=== PATIENT | female | born 1950 | race Caucasian/White ===

== ENCOUNTER 2019-09-26 19:40 | Inpatient (IN) | payer MEDICARE ==
[~2019-09-26] VITALS: Ht 160 cm; Wt 104.3 kg
[~2019-09-26 19:40] MED LIST: HYDROCODONE-AP1 EAC6 PO; ONDANSETRON HCL4 M2 PO
[2019-09-26 19:41] VITALS: BP 190/102
[2019-09-26] MEDS ORDERED: ATENOLOL 100MG100 MG PO (19:50)
[2019-09-26] MEDS ORDERED: ASA81BEC PO (19:50)
[2019-09-26] MEDS ORDERED: LEVO-T100 MCG PO (19:51)
[2019-09-26] MEDS ORDERED: LIPITOR 40 MG T40 M1 PO (19:52)
[2019-09-26 20:12] LABS: ABSOLUTE BASOPHILS 0.1 thou/uL (0.0-0.2); ABSOLUTE EOSINOPHILS 0.1 thou/uL (0.0-0.7); ABSOLUTE MONOCYTES 0.7 thou/uL (0.0-1.2); ABSOLUTE NEUTROPHILS 13.8 thou/uL (1.6-8.1); BASOPHILS 0.7 %; EOSINOPHILS 0.8 %; HEMATOCRIT 29.5 % (37.0-47.0); HEMOGLOBIN 9.6 gm/dL (12.0-15.0); LYMPHOCYTES 11.7 %; MCHC 32.6 g/dL (28.0-37.0); MCV 82.6 fL (80.0-100.0); MONOCYTES 4.3 %; MPV 8.2 fl. (7.2-11.1); NUCLEATED RBCS 0 /100WBC; PLATELET COUNT* 296 thou/uL (150-400); POLYS 82.5 %; RBC 3.57 mil/uL (4.20-5.00); WBC 16.7 thou/uL (4.0-11.0)
[2019-09-26 20:16] LABS: INR 1.1; PROTIME 11.2 Seconds (9.20-11.50)
[2019-09-26 20:23] LABS: CALCIUM 6.9 mg/dL (8.5-10.1); POTASSIUM 4.2 mmol/L (3.5-5.1)
[2019-09-26 20:28] LABS: ALBUMIN 2.8 g/dL (3.4-5.0); TOTAL BILIRUBIN 0.4 mg/dL (<0.1-1.0); TOTAL PROTEIN 7.2 g/dL (6.4-8.2)
[2019-09-26 22:00] LABS: URINE BILIRUBIN NEGATIVE (Negative); URINE BLOOD 1+ (Negative); URINE CLARITY CLEAR; URINE COLOR YELLOW; URINE GLUCOSE-RANDOM TRACE (Negative); URINE KETONES NEGATIVE (Negative); URINE LEUKOCYTES-REFLEX NEGATIVE (Negative); URINE NITRITE-REFLEX POSITIVE (Negative); URINE PROTEIN 3+ (Negative); URINE SPECIFIC GRAVITY 1.025 (1.005-1.030); URINE UROBILINOGEN 0.2 E.U./dl (0.2-1.0)
[2019-09-26 22:10] LABS: CRYSTALS None Seen /LPF (None Seen); HYALINE CASTS 0-3 Few /LPF (None Seen); SQUAMOUS 0-3 Few /LPF (0-3); URINE RBC 0-2 Rare /HPF (0-2); URINE WBC-REFLEX 6-15 Few /HPF (0-5)
[2019-09-26 22:42] VITALS: BP 190/85
[2019-09-26 22:45] VITALS: BP 147/78
[2019-09-27 04:00] VITALS: BP 158/81
--- NOTE | 2019-09-27 06:46 | NUR ---
PT ADMITTED TO FLOOR AT 2230. ASSESSMENTS COMPLETED AT BEDSIDE. C/O PAIN TREATED WITH PRN MEDICATION. C/O N/V TREATED WITH PRN MEDICATION. HOURLY ROUNDING COMPLETED FOR SAFETY. CALL LIGHT WITHIN REACH, BED ALARM ON. PT HAS REMAINED NPO FROM 0000.
[2019-09-27 07:40] VITALS: BP 156/84
[2019-09-27 08:32] LABS: CALCIUM 6.5 mg/dL (8.5-10.1); CREATININE 1.8 mg/dL (0.6-1.3); POTASSIUM 4.1 mmol/L (3.5-5.1)
[2019-09-27 09:15] VITALS: BP 156/84
[2019-09-27 13:15] VITALS: BP 124/76
--- NOTE | 2019-09-27 17:07 | NUR ---
PT A&OX4 VSS. PT TO SURGERY THIS AM FOR HIP R HIP REPAIR. PT ON 2L O2 BY NC. IV TO RFA PATENT, NO SWELLING/REDNESS NOTED. PT WAS NPO SINCE MIDNIGHT PRIOR TO SURGERY. PT C/O NAUSEA THIS AM, PRN MEDICATIONS ADMINISTERED ORDERED. GARY CATHETER PATENT, YELLOW URINE OBSERVED IN COLLECTION BAG. 1 NEPH TUBE PRESENT UPON ADMISSION. DRAIN PATENT, DEVICE EMPTIED IN PACU PRIOR TO RETURNING TO UNIT. PT BELONGINGS SENT HOME WITH SPOUSE FROM ER PRIOR TO TRANSFERRING TO THIS UNIT LAST NOC. PT SPOUSE AT BEDSIDE THIS AM PER ANATOMY AND PHYSIOLOGY INSTRUCTOR TO PROVIDE MEDICATION LIST AND INFORMATION. PT RETURNED FROM PACU APPROX 1335. NO SIGNS/SYMPTOMS OF DISTRESS. NO C/O PAIN. INSULIN ADMINISTERED WITH PT EVENING MEAL. PT RESTS IN BED WITH CALL LIGHT IN REACH. WILL CONTINUE TO MONITOR.
[2019-09-27 18:53] VITALS: BP 114/73
[2019-09-27 20:00] VITALS: BP 142/73
[2019-09-28 00:23] VITALS: BP 102/55
[2019-09-28 04:41] LABS: CALCIUM 6.4 mg/dL (8.5-10.1); CREATININE 2.1 mg/dL (0.6-1.3); POTASSIUM 4.5 mmol/L (3.5-5.1)
--- NOTE | 2019-09-28 05:17 | NUR ---
ASSESSMENTS COMPLETED AT BEDSIDE, PLEASE SEE CHARTING. MEDIACTIONS ADMINISTERED PER MAR. PT HAS HAD IMPROVEMENT TO PAIN AFTER SURGERY AND HAS REQUIRED NO PAIN MEDICATION THIS SHIFT. DID EDUCATE PT ON PAIN WITH INCREASE WITH MOVEMENT. CURRENTLY IN BED WITH CALL LIGHT WITHIN REACH. HOURLY ROUNDING COMPLETED FOR SAFETY.
[2019-09-28 05:25] LABS: HEMATOCRIT 19.1 % (37.0-47.0); HEMOGLOBIN 6.3 gm/dL (12.0-15.0)
[2019-09-28 07:45] VITALS: BP 119/68
[2019-09-28 09:56] VITALS: BP 116/61; BP 118/62; BP 120/70; BP 125/71
[2019-09-28 14:02] LABS: HEMATOCRIT 20.7 % (37.0-47.0)
[2019-09-28 14:07] LABS: HEMOGLOBIN 6.9 gm/dL (12.0-15.0)
[2019-09-28 15:30] VITALS: BP 129/69; BP 130/71; BP 131/70; BP 133/72; BP 135/72
--- NOTE | 2019-09-28 18:45 | NUR ---
PT A&OX4 VSS. PT ACCUCHECK, SLIDING SCALE INSULIN ON AUG. PT ON 2L O2 BY NASAL CANNULA. PT HAS GARY R/T IMMOBILITY. NEPHROSTOMY DRAIN TO L FLANK PRESENT ON ADMISSION. PO PRN PAIN MED X1 THIS SHIFT. SX DRESSING TO R HIP C/D/I. CRITICAL HGB 6.3 , THIS AM. 1 UNIT BLOOD ORDERED PRIOR TO THIS NURSE ASSUMING CARE. 1ST UNIT INFUSED. H&H DRAWN, AND 2ND UNIT ORDERED BY DR FLORES. 2ND UNIT COMPLETED 1829, REPEAT H&H ORDERED, LAB NOTIFIED. PT RESTING IN BED WITH CALL LIGHT IN REACH. WILL CONTINUE TO MONITOR.
[2019-09-28 19:04] LABS: HEMATOCRIT 22.7 % (37.0-47.0); HEMOGLOBIN 7.7 gm/dL (12.0-15.0)
[2019-09-28 20:00] VITALS: BP 140/71
[2019-09-29] VITALS: BP 136/74
--- NOTE | 2019-09-29 04:33 | NUR ---
ASSUMED PT CARE AT APPROX 1930. PT IS AWAKE AND ORIENTED X4. ASSESSMENT DONE AND CHARTED. RIGHT HIP DRESSING INTACT CLEAN AND DRY. LIDOCAINE PATCH PLACED FOR PAIN WITH PARTIAL RELIEF. ICE PACK IN PLACE. PT IS ABLE TO SLEEP SOME. CALL LIGHT WITHIN REACH. HOURLY ROUNDING DONE FOR PT SAFETY. HIGH FALL PRECAUTIONS IN PLACE.
[2019-09-29 04:44] LABS: HEMATOCRIT 23.6 % (37.0-47.0)
[2019-09-29 08:00] VITALS: BP 167/91
--- NOTE | 2019-09-29 14:57 | NUR ---
CM spoke with Pt's via phone. Pt is independent, uses a cane for mobility. Per , Pt tripped over some torn souleymane at home. No hx of HH or SNF. CM informed that therapies are recommending acute rehab, consult placed. in agreement with POC. Per , if Pt needs assistance post dc from acute rehab, their son and grandson also live in the home. Following.
--- NOTE | 2019-09-29 15:35 | NUR ---
PT VSS, A&OX4, MED SURG STATUS, RIGHT HIP FX- ORIF, DRESSING CLEAN DRY AND INTACT, GARY CATHETER, NEPH TUBE REMOVED TODAY- DRESSING IN PLACE, YEASTY AREA ABOVE INSERTION SITE. NYSTATIN ON EMAR. PATIENT MAX ASSIST- PIVOT TO CHAIR WITH PT. HOURLY ROUNDING PERFORMED, POSSESSIONS AND CALL LIGHT WITHIN REACH.
[2019-09-29 16:00] VITALS: BP 139/76
--- NOTE | 2019-09-29 16:55 | EKG ---
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: NEHEMIAH : 1950 Requested By: Boris Sharma Order Number: [id number] Arun MD: Mark Card Measurements Intervals [place] Rate: 63 P: -5 NM: 200 QRS: -16 QRSD: 90 T: -89 QT: 517 QTc: 530 Interpretive Statements Sinus rhythm Possible inferior scar Borderline left axis deviation Nonspecific T abnormalities, diffuse leads Prolonged QT interval No previous ECG available for comparison Electronically Signed On 09-29-2019 16:53:31 CDT by Mark Card [email or web address] <ELECTRONICALLY SIGNED> By: Mark Card MD, FAC 09/29/19 1653 0741 0741 Mark Card MD, [facility] /EPI
[2019-09-29 20:30] VITALS: BP 144/74
--- NOTE | 2019-09-30 06:11 | NUR ---
PATIENT SLEPT MOST OF THE NIGHT. PATIENT WAS A LITTLE RESTLESS THIS SHIFT WANTING TO GET UP AND TAKING HER GOWN OFF. GARY REMAINS TO DEPENDENT DRAIN. IV ANTIBIOTIC WAS GIVEN ORDERED. WILL CONTINUE TO MONITOR.
[2019-09-30 06:22] LABS: HEMATOCRIT 22.4 % (37.0-47.0); HEMOGLOBIN 7.6 gm/dL (12.0-15.0); MCH 28.7 pg (26.0-34.0); MCHC 34.1 g/dL (28.0-37.0); MCV 84.2 fL (80.0-100.0); MPV 8.4 fl. (7.2-11.1); RBC 2.66 mil/uL (4.20-5.00); RDW-CV 14.6 % (10.5-14.5); WBC 10.4 thou/uL (4.0-11.0)
[2019-09-30 06:28] LABS: CALCIUM 7.1 mg/dL (8.5-10.1); CREATININE 2.1 mg/dL (0.6-1.3); MAGNESIUM 1.2 mg/dL (1.8-2.4)
[2019-09-30 08:00] VITALS: BP 180/81
--- NOTE | 2019-09-30 08:05 | CON ---
[address] [address] CONSULTATION Name: ABHINAV ABRAHAM Room: [address] IN M.R.#: [id number] Admission: 09/26/19 Attend Phys: Ofelia Anders Discharge: Date of : 52 Report #: [id number] THIS REPORT FOR: //name// cc: Justin Roman MD, Bruce D. MD ~ THIS REPORT FOR: //name// CC: Justin Sharma DATE OF SERVICE: 09/29/2019 INFECTIOUS DISEASE CONSULTATION ATTENDING PHYSICIAN: Balaji Ortiz MD REASON FOR EVALUATION: Complicated urinary tract infection in the setting of obstructive uropathy. HISTORY OF PRESENT ILLNESS: Chart reviewed, patient examined. This is a 69-year-old who has fairly extensive medical history including diabetes mellitus. She has got osteopenia, who fell and utilize a walker, had acute intertrochanteric right femoral fracture, it is comminuted, underwent operative internal fixation right intertrochanteric femur fracture with cephalomedullary nail fixation. Postop course has been fairly unremarkable. Of note, ongoing issues with appears to be obstructive uropathy. She does not know much of the details, it was done at another facility, but at one point she was admitted. She was reportedly diagnosed with urinary tract infection, underwent a left-sided nephrostomy tube. Again, she states she had roughly 9-day hospitalization treated with antibiotics and discharged for additional 7 days. She has been off the antibiotics for roughly a month. Denies any recent fevers. Her appetite has been somewhat diminished, overall. Denies any pulmonary related complaints. She made efforts to try to follow up and have the tube removed, it were unsuccessful during the coronavirus pandemic. There is pending imaging studies planned. She was placed empirically on cefepime and had been on ceftriaxone. Culture returned today came back a slit of Pseudomonas aeruginosa that was generally susceptible with exception of intermediate susceptibility to gentamicin. ALLERGIES: LISTED TO CODEINE. CURRENT MEDICATIONS: Include cefepime, tramadol, ondansetron, atorvastatin, levothyroxine, atenolol, promethazine. PAST MEDICAL HISTORY: As described above, diabetes mellitus type 2, history of hypertension, irritable bowel syndrome, [place] [address] CONSULTATION Name: ABRAHAMABHINAV Room: [address] IN [facility].#: [id number] Admission: 09/26/19 Attend Phys: Ofelia Anders Discharge: Date of : 52 Report #: [id number] SOCIAL HISTORY: Nonsmoker, no ethanol, no illicit drug use. FAMILY HISTORY: Noncontributory. REVIEW OF SYSTEMS: Otherwise, unremarkable 10-point review of systems with exception noted above. PHYSICAL EXAMINATION: GENERAL: She is alert, cooperative, appropriate, in mild distress. HEENT: Normocephalic. Extraocular muscles intact. She has got several teeth missing. NECK: Supple. LUNGS: Diminished breath sounds, generally clear. HEART: Regular. I do not appreciate murmur. ABDOMEN: Soft, nontender, nondistended. She had a left-sided nephrostomy tube. GENITOURINARY AND RECTAL: Deferred. LABORATORY AND X-RAY DATA: Urine culture with Pseudomonas aeruginosa described above. Electrolytes from yesterday: Sodium 135, potassium 4.5, chloride 103, bicarbonate is 20, anion gap of 12, BUN and creatinine 33 and 2.1, glucose of 181, estimated GFR of 23. TSH of 3.259. H and H 8.0 and 23.6. Initial hemoglobin 9.6, initial white count of 16.7, platelets of 296. LFTs unremarkable. Albumin of 2.8, total protein 7.2. ASSESSMENT: Complicated urinary tract infection as evidenced by nephrostomy tube has been in several weeks. Noted plans to image try to better identify the exact nature of the uropathy, which I believe is probably obstructive see if things have improved. Certainly agree with treatment with therapy with cefepime. Based on the culture results, it is adjusted for her renal insufficiency to see how she does clinically. Discuss with Dr. Ortiz. <ELECTRONICALLY SIGNED> By: Stu Gonzalez MD 09/30/19 0805 0948 [id number] Gonzalez MD /nt
--- NOTE | 2019-09-30 12:49 | NUR ---
Per , Pt will be medically stable to dc to acute rehab tomorrow, Dr Monroy to see and eval today. Insurance auth will need to be obtained.
[2019-09-30 16:51] VITALS: BP 162/83
--- NOTE | 2019-09-30 18:56 | NUR ---
PATINAVNEET RESTING IN BED. UP WITH MAX ASSIST X2 TO CHAIR. RIGHT FEMUR FX SURGICAL SITE WITH DRESSING CLEAN AND DRY. PAIN WELL MANAGED WITH TRAMADOL. KATHERIN MANRIQUE FOR PATINERT SAFETY
[2019-09-30 20:45] VITALS: BP 145/69
--- NOTE | 2019-10-01 05:16 | NUR ---
PT SLEPT WELL OVERNIGHT. GARY DRAINING YELLOW URINE. HS ACCUCHECK 143, NO INSULIN GIVEN. PT RECEIVED TRAMADOL AT HS WITH GOOD RESULT. ISLAND DRSG TO R HIP CDI. RWRIST IV SL, ABX GIVEN ORDERED. ABLE TO USE CALL LITE AND MAKE NEEDS KNOWN. PT TURNED AND REPOSITIONED Q2 HOURS AND PRN FOR SKIN CARE AND COMFORT. MED SURG STATUS.
[2019-10-01 06:26] LABS: HEMATOCRIT 23.4 % (37.0-47.0); HEMOGLOBIN 7.9 gm/dL (12.0-15.0)
[2019-10-01 06:36] LABS: CALCIUM 7.3 mg/dL (8.5-10.1); CREATININE 1.8 mg/dL (0.6-1.3); MAGNESIUM 1.1 mg/dL (1.8-2.4); POTASSIUM 4.1 mmol/L (3.5-5.1)
[2019-10-01 08:00] VITALS: BP 173/90
[2019-10-01 10:54] LABS: % SATURATION 14 % (20-39); IRON 19 ug/dL (50-175)
--- NOTE | 2019-10-01 15:44 | NUR ---
Insurance auth received for Pt to dc to acute rehab. Updated Dr and charge nurse. Cm attempted to contact Pt's , was unavailable via phone.
--- NOTE | 2019-10-01 16:15 | NUR ---
PT VSS, MED SURG STATUS, ROOM AIR, MAX ASSIST POST ORIF TO RIGHT HIP TO REPAIR FX, DRESSING CLEAN DRY AND INTACT. PT EXPERIENCED NAUSEA AND VOMITTING IN THE AM. ACCUCHECK, HOURLY ROUNDING PERFORMED, POSSESSIONS AND CALL LIGHT WITHIN REACH. REC DISCHARGE ORDERS, PT DISCHARGING TO 3RD FLOOR REHAB AT SHIFT CHANGE. DISCHARGE COMPLETED AND REVIEWED WITH PATIENT.
[2019-10-01] MEDS ORDERED: LIDOPATCH1 EACH TOP (18:32)
[2019-10-01] MEDS ORDERED: MAXIPIME1 GM IM (18:32)
[2019-10-01] MEDS ORDERED: MELATONIN5 M1 PO (18:32)
[2019-10-01] MEDS ORDERED: NYAMYC15 GM TOP (18:32)
[2019-10-01] MEDS ORDERED: ATENOLOL 100MG100 MG PO (18:32)
[2019-10-01] MEDS ORDERED: ELIQUIS5 MG PO (18:32)
[2019-10-01] MEDS ORDERED: SYNTHROID150 MCG PO (18:32)
[2019-10-01 18:45] VITALS: BP 173/90
[2019-10-01] MEDS ORDERED: VITAMIN D250 MCG PO (18:53)
[2019-10-01] MEDS ORDERED: FOSAMAX 70 MG T70 MG PO (18:53)
--- NOTE | 2019-10-07 09:05 | OP ---
[facility] [address] [place] [address] OPERATIVE REPORT Name: ABHINAV ABRAHAM Room: [address] [place] .R.#: [id number] Admission: 09/26/19 Attend Phys: Ofelia Anders Discharge: 10/01/19 Date of : 52 Report #: [id number] THIS REPORT FOR: //name// cc: Justin Roman MD, Bruce D. MD ~ THIS REPORT FOR: //name// CC: Justin Sharma DICTATED BY: Bakair Welch DO DATE OF SERVICE: 09/27/2019 PREOPERATIVE DIAGNOSIS: Right, closed, displaced and comminuted intertrochanteric hip fracture. POSTOPERATIVE DIAGNOSIS: Right, closed, displaced and comminuted intertrochanteric hip fracture, intertrochanteric femur fracture. PROCEDURE PERFORMED: Open reduction and internal fixation of right intertrochanteric femur fracture with cephalomedullary nail. ORTHOPEDIC IMPLANTS: Gwynn cephalomedullary nail 10 mm x 170 mm x 125 degree angles with appropriately sized lag screw and distal interlock screw. SURGEON: Raghu Coffey DO COMPUTER SYSTEMS ANALYST: Bakari Welch DO and tricia Marcano DO ANESTHESIA: General with local. ESTIMATED BLOOD LOSS: 175 mL. DRAINS: None. SPECIMENS: None. COMPLICATIONS: None. CONDITION OF THE PATIENT: Stable. DISPOSITION: PACU and then to Med/Surg. ANTIBIOTICS: Two g Ancef IV piggyback prior to the procedure as well as scheduled Roceph[place] [address] OPERATIVE REPORT Name: ABHINAV ABRAHAM Room: [address] IN [facility].#: [id number] Admission: 09/26/19 Attend Phys: Ofelia Anders Discharge: 10/01/19 Date of : 52 Report #: [id number] INDICATIONS FOR SURGERY: The patient is a pleasant 69-year-old female who resides at home with her and son and last night, she was ambulating with her walker when she fell landing on her right side, sustaining a right hip fracture. She presented to the Emergency Room where x-rays demonstrated a right intertrochanteric hip fracture and she was admitted to the hospital for further treatment. She was cleared by Medicine this morning for surgery today. She was informed of all the risks, benefits, indications and associated complications with operative fixation of her right hip fracture including but not limited to infection, wound healing complications, neurovascular injury, bleeding, need for blood transfusion, malunion, nonunion, posttraumatic arthritis, rotational abnormalities, shortening of the leg, need for revision surgery or hardware failure, complications with anesthesia, DVT, PE, even and other possibilities. She understands. Consent was obtained prior to surgery. FINDINGS: Right comminuted displaced intertrochanteric was evaluated. DESCRIPTION OF PROCEDURE: Met with the patient in the preoperative suite and the correct lower extremity was marked. She was then transferred to the operating room and given the benefit of general anesthesia. She was then transitioned into the [place] fracture table and positioned in the standard fashion. At this point, closed reduction was performed using the multiplanar fluoroscopy confirmed adequate reduction of the fracture. Therefore, the right lower extremity was then sterilely prepped and draped in the standard fashion. At this point, a surgical timeout was performed indicating correct patient, operative site, procedure performed and all in the room were in agreement, we elected to proceed. Next, I marked out the incision and the incision was incised just proximal to the greater trochanter extending proximally. Sharp dissection carried down to the fascia, which was incised in line with its fibers and then blunt dissection was carried down to the greater trochanter. Using multiplanar fluoroscopy, the guidewire position was identified and carried down to the lesser trochanter. The soft tissue protector and then opening reamer was then used over the guidewire. At this point, the [employer] gamma nail was then passed down the femur and we elected to proceed with a 10 x 170 x 125 degree angle nail. With the nail in position, the skin was incised for the lag screw position and a bone hook was utilized in order to hold the fracture reduced while the lag screw guidewire was positioned and then overreamed and then the appropriate size lag screw was then placed. In the attempt to position the lag screw in order to prevent any rotation of the femoral head, a second guidewire was placed and the tip was fractured and left within the intramedullary canal of the femur. Next, the triple sleeve was utilized for the distal interlock screw. The skin was incised and the distal interlock screw was drilled and then placed in the standard fashion. At this point, the wounds were thoroughly irrigated. Final multiplanar fluoroscopy images were taken. Closed the deep tissue and fascia with a #1 Vicryl in a [id number] fashion. Skin was closed with a 2-0 Monocryl in a simple inverted fashion. Skin maynor were then utilized. [address] [address] OPERATIVE REPORT Name: ABHINAV ABRAHAM Room: [address]#: [id number] Admission: 09/26/19 Attend Phys: Ofelia Anders Discharge: 10/01/19 Date of : 52 Report #: [id number] Dressings consisted of a Mepilex as well as a bulky compressive dressing with 4 x 4s, ABD and tape. Needle and sponge counts were correct x 2 at the end of procedure. ATTESTATION: Dr. Raghu Coffey was present for all critical aspects of the case. POSTOPERATIVE COURSE: The patient will receive physical therapy and a mechanical and chemical DVT prophylaxis will be initiated. Appreciate Medicine assistance in further medical co-management as well as a corrections caseworker for discharge planning. <ELECTRONICALLY SIGNED> By: Raghu Coffey DO 10/07/19 0905 1210 [id number] Coffey DO /nt
== END 2019-10-01 20:30 | DRG 853 ==
LOC: M.ERS 19:40 → M.2W 21:21 → M.TBA-ER 21:21 → M.2W 22:31
PROVIDERS: Emergency Medicine; Family Medicine; Internal Medicine; Orthopaedic Surgery; ADMIT Internal Medicine
PROC: 0QS604Z Reposition Right Upper Femur with Internal Fixation Device, Open Approach (ICD-10-PCS; principal; 2019-09-27)
PROC: 30233N1 Transfusion of Nonautologous Red Blood Cells into Peripheral Vein, Percutaneous Approach (ICD-10-PCS; 2019-09-28)
PROC: 0TP5X0Z Removal of Drainage Device from Kidney, External Approach (ICD-10-PCS; 2019-09-29)
DX: A41.9 Sepsis, unspecified organism (principal); E43 Unspecified severe protein-calorie malnutrition; M80.051A Age-related osteoporosis with current pathological fracture, right femur, initial encounter for fracture; N18.4 Chronic kidney disease, stage 4 (severe); N30.00 Acute cystitis without hematuria; D62 Acute posthemorrhagic anemia; N12 Tubulo-interstitial nephritis, not specified as acute or chronic; Z68.41 Body mass index [BMI] 40.0-44.9, adult; I12.9 Hypertensive chronic kidney disease with stage 1 through stage 4 chronic kidney disease, or unspecified chronic kidney disease; E11.22 Type 2 diabetes mellitus with diabetic chronic kidney disease; E78.5 Hyperlipidemia, unspecified; E66.01 Morbid (severe) obesity due to excess calories; I45.81 Long QT syndrome; R11.0 Nausea; T50.905A Adverse effect of unspecified drugs, medicaments and biological substances, initial encounter; B96.5 Pseudomonas (aeruginosa) (mallei) (pseudomallei) as the cause of diseases classified elsewhere; B96.20 Unspecified Escherichia coli [E. coli] as the cause of diseases classified elsewhere; Y92.89 Other specified places as the place of occurrence of the external cause; Z88.6 Allergy status to analgesic agent

== ENCOUNTER 2019-10-01 16:52 | Inpatient (IN) | payer MEDICARE ==
[~2019-10-01] VITALS: Ht 160 cm; Wt 110.1 kg
[~2019-10-01 16:52] MED LIST changes: +ASA81BEC PO; +ATENOLOL 100MG100 MG PO; +LEVO-T100 MCG PO; +LIPITOR 40 MG T40 M1 PO
[2019-10-01] MEDS ORDERED: NYAMYC15 GM TOP (18:32)
[2019-10-01] MEDS ORDERED: SYNTHROID150 MCG PO (18:32)
[2019-10-01] MEDS ORDERED: ATENOLOL 100MG100 MG PO (18:32)
[2019-10-01] MEDS ORDERED: ELIQUIS5 MG PO (18:32)
[2019-10-01] MEDS ORDERED: LIDOPATCH1 EACH TOP (18:32)
[2019-10-01] MEDS ORDERED: MAXIPIME1 GM IM (18:32)
[2019-10-01] MEDS ORDERED: MELATONIN5 M1 PO (18:32)
[2019-10-01] MEDS ORDERED: VITAMIN D250 MCG PO (18:53)
[2019-10-01] MEDS ORDERED: FOSAMAX 70 MG T70 MG PO (18:53)
[2019-10-01 20:24] VITALS: BP 197/80
[2019-10-01 21:30] VITALS: BP 179/71
--- NOTE | 2019-10-01 22:44 | NUR ---
PT ADMITTED TO REHAD @ 2029. ALERT AND ORIENTED X4. ADM HX AND ASSESSMENT DOCUMENTED. PT HAD CEFEPIME IVPB THAT WAS BROUGHT UP WITH PT AND PT HAS RW IV. CEFEPIME IVPB GIVEN. PT TO START CEFEPIME IM. PT HAVE HAD 2 EPISODES OF VOMITTING. ZOFRAN GIVEN FOR NAUSEA. MEDS GIVEN PER EMAR. WILL CONTINUE TO MONITOR.
[2019-10-02 04:00] VITALS: BP 179/71
[2019-10-02 05:14] LABS: HEMOGLOBIN 7.7 gm/dL (12.0-15.0); MCH 27.9 pg (26.0-34.0); MCHC 33.3 g/dL (28.0-37.0); MCV 83.7 fL (80.0-100.0); MPV 8.3 fl. (7.2-11.1); RBC 2.75 mil/uL (4.20-5.00); RDW-CV 14.7 % (10.5-14.5); WBC 8.2 thou/uL (4.0-11.0)
[2019-10-02 05:24] LABS: CREATININE 1.6 mg/dL (0.6-1.3); POTASSIUM 4.2 mmol/L (3.5-5.1)
[2019-10-02 05:31] LABS: CALCIUM 7.9 mg/dL (8.5-10.1)
--- NOTE | 2019-10-02 06:13 | NUR ---
PT SLEPT WELL THIS SHIFT. NO OTHER EPISODES OF N/V NOTED. PT DENIES PAIN. EXCORIATION TO LT KNEE. ADM PICTURE TAKEN. DRESSING TO LT HIP C/D/I. GARY IN PLACE. FALL PRECAUTION IN PLACE. WILL CONTINUE TO MONITOR.
[2019-10-02 08:00] VITALS: BP 154/74
--- NOTE | 2019-10-02 15:04 | NUR ---
Nutrition: Pt admitte dto rehab with Rt hip FX. Hx, meds, labs noted. BG 162, alb 2.8, prealb 18.3. Wt: 239#. Pt has upset stomach and isn't eating much - could be some constipation as well, per nursing. RD ordered Ensure at dinner tonight to help with po intake as well as possibility of helping with BM. Physciain indicated severe PCM - defer DX. CHO count diet. Will follow weekly. Consider Mild risk at this time. GOALS: +BM, increase meal intake, good BG control.
--- NOTE | 2019-10-02 15:38 | NUR ---
ASSUMMED CARE OF PT AT 0730, PT ALERT AND ORIENTED, PT TRANSFERS WITH MAX ASSIST OF 2, GB WALKER CUEING, DRESSING C/D/I TO RIGHT HIP, SKIN TO LE THICK/SCALY, MEPILEX TO LEFT KNEE INTACT, GARY PATENT AND DRAINING, SALINE LOCK PATENT TO RIGHT FA, DISCUSSED BOWEL STATUS WITH PHYSICIAN, PT C/O NAUSEA THIS AM, MEDICATED PER ORDER, C/O HIP PAIN, MEDICATED WITH GD RELIEF, TAKING FOOD AND FLUIDS WELL, PARTICIPATED IN ALL THERAPIES, HOURLY ROUNDING COMPLETED, ASSESSMENT COMPLETE, WILL CONTINUE TO MONITOR.
--- NOTE | 2019-10-02 16:31 | EKG ---
[place] [address] ELECTROCARDIOGRAM REPORT Name: ABRAHAMABHINAV Room: [address] ADM IN M.R.#: [id number] Admission: 10/01/19 Attend Phys: Lex Monroy MD Discharge: Date of : 52 Date of Service: 10/02/19 1530 Report #: [id number] THIS REPORT FOR: //name// [facility] Test Date: 2019-10-02 Test Time: 15:30:21 Pat Name: ABHINAV ABRAHAM Department: Room: [address] Gender: F Shell Assembler: : 1950 Requested By: Paula Fitzpatrick Order Number: [id number] Reading MD: Kleber Cotton Measurements Intervals [place] Rate: 59 P: 36 ND: 168 QRS: 6 QRSD: 93 T: 8 QT: 490 QTc: 486 Interpretive Statements Sinus rhythm Borderline abnrm T, anterolateral leads Borderline prolonged QT interval Compared to ECG 09/27/2019 07:41:38 T-wave abnormality no longer present Electronically Signed On 10-02-2019 16:30:10 CDT by Kleber Cotton [email or web address] <ELECTRONICALLY SIGNED> By: Kleber Cotton MD, FACC 10/02/19 1630 1530 1530 Kleber Cotton MD, FACC /EPI
[2019-10-02 19:50] VITALS: BP 145/57
[2019-10-03 04:41] LABS: HEMATOCRIT 20.4 % (37.0-47.0); MCH 29.1 pg (26.0-34.0); MCHC 34.4 g/dL (28.0-37.0); MCV 84.5 fL (80.0-100.0); RBC 2.42 mil/uL (4.20-5.00); RDW-CV 15.2 % (10.5-14.5); WBC 7.9 thou/uL (4.0-11.0)
[2019-10-03 05:04] LABS: ALBUMIN 1.8 g/dL (3.4-5.0); CALCIUM 7.6 mg/dL (8.5-10.1); CREATININE 1.6 mg/dL (0.6-1.3); MAGNESIUM 1.4 mg/dL (1.8-2.4); PHOSPHORUS* 2.7 mg/dL (2.5-4.9)
--- NOTE | 2019-10-03 06:27 | NUR ---
PT SLEPT WELL THIS SHIFT. MEDS GIVEN PER EMAR. PAIN MED GIVEN THIS SHIFT. GARY IN PLACE. NO BM NOTED THIS SHIFT. BOWEL REGIMEN STARTED. PT DECLINED NEPH TUBING DRESSING SITE ON LEFT FLANK TO BE CHANGED. PREFERS IT DONE LATER DURING THE DAY. MG+ BEING REPLACED PER PROTOCOL. PT HAD EPISODE OF VOMITTING THIS SHIFT. FALL PRECAUTION IN PLACE. CALL LIGHT WITHIN REACH. HOURLY ROUNDINGS MADE. WILL CONTINUE TO MONITOR.
[2019-10-03 08:02] VITALS: BP 148/70
--- NOTE | 2019-10-03 09:30 | EKG ---
[place] [address] ELECTROCARDIOGRAM REPORT Name: ABHINAV ABRAHAM Room: [address] ADM IN M.R.#: [id number] Admission: 10/01/19 Attend Phys: Lex Monroy MD Discharge: Date of : 52 Date of Service: 10/03/19 0454 Report #: [id number] THIS REPORT FOR: //name// [facility] Test Date: 2019-10-03 Test Time: 04:54:09 Pat Name: ABHINAV ABRAHAM Department: Room: [address] Gender: F Vascular Technologist: KAM : 1950 Requested By: Lex Monroy Order Number: [id number] Reading MD: Mark Card Measurements Intervals [place] Rate: 57 P: 20 LA: 171 QRS: -14 QRSD: 91 T: -7 QT: 479 QTc: 467 Interpretive Statements Sinus rhythm Borderline T abnormalities, diffuse leads Compared to ECG 10/02/2019 15:30:21 T-wave abnormality now present Electronically Signed On 10-03-2019 9:29:04 CDT by Mark Card [email or web address] <ELECTRONICALLY SIGNED> By: Mark Card MD, [facility] 10/03/19 0929 0454 0454 Mark Card MD, [facility] /EPI
--- NOTE | 2019-10-03 09:31 | EKG ---
[place] [address] ELECTROCARDIOGRAM REPORT Name: ABRAHAMABHINAV Room: [address] ADM IN M.R.#: [id number] Admission: 10/01/19 Attend Phys: Lex Monroy MD Discharge: Date of : 52 Date of Service: 10/03/19 0801 Report #: [id number] THIS REPORT FOR: //name// [facility] Test Date: 2019-10-03 Test Time: 08:01:26 Pat Name: ABHINAV ABRAHAM Department: Room: [address] Gender: F Classroom Aide: : 1950 Requested By: Paula Fitzpatrick Order Number: [id number] Reading MD: Mark Card Measurements Intervals [place] Rate: 55 P: 17 ME: 170 QRS: -14 QRSD: 93 T: -8 QT: 481 QTc: 461 Interpretive Statements Sinus rhythm Borderline T abnormalities, inferior leads Compared to ECG 10/02/2019 15:30:21 T-wave abnormality now present Electronically Signed On 10-03-2019 9:29:33 CDT by Mark Card [email or web address] <ELECTRONICALLY SIGNED> By: Mark Card MD, [facility] 10/03/19 0929 0 0 Mark Card MD, [facility] /EPI
--- NOTE | 2019-10-03 14:26 | NUR ---
RECEIVED REPORT FROM ARPAN CASTELLANO AT 1230. PATIENT IN CHAIR. ALARM ON. CALL LIGHT IN REACH.
--- NOTE | 2019-10-03 15:28 | NUR ---
REMOVED PATIENT GARY CATHETER. TIP INTACT. 9ML FLUID REMOVED FROM BALLOON BEFORE REMOVING. PATIENT IN BRIEF. PATIENT ON VOIDING TRIAL. IF PATIENT HAS NOT VOIDED BY 2100, WILL NEED BLADDER SCANNED.
--- NOTE | 2019-10-03 15:29 | NUR ---
Initial inpt rehab assessment: Pt lives at home with and family. Pt previously independent and used cane. No hx of HH services or SNF. SW to continue to follow to assist with safe dc planning.
--- NOTE | 2019-10-03 18:45 | NUR ---
PATIENT A&OX4. PATIENT UP TO BEDSIDE COMMODE X2 ASSIST AND GAIT BELT. PATIENT C/O PAIN, BUT REFUSED PAIN MEDICATION. REMOVED GARY CATHETER TODAY. PATIENT WILL NEED BLADDER SCANNED AT 2100 IF NO URINE OUTPUT AFTER GARY REMOVED AT 1500. PATIENT HAD SMALL WATERY BM TODAY.
[2019-10-03 19:40] VITALS: BP 197/90
[2019-10-03 21:45] VITALS: BP 154/70
--- NOTE | 2019-10-04 05:13 | NUR ---
ASSUMED CARES AT 1920. ALERT AND ORIENTED. PT HAVING INCREASED PAIN TO RIGHT HIP. PT HESITANT TO TAKE ANY PAIN MEDS BUT DID FINALLY AGREE. PT RESTLESS AND NEEDED MUCH REPOSITIONING TO GET COMFORTABLE. ICE PACK GIVEN. PT DID HAVE SEVERAL EPISODES OF URINARY INCONTINENCE. PVR X 1 WAS 50 CC. PT HAS REDNESS AND IS VERY EXCORIATED TO GROIN/PERIAREA. ZINC OINTMENT OBTAINED TO BE APPLIED. NYSTATIN POWDER TO ABD FOLD. MAGNESIUM REPLACED. DRSG TO RIGHT HIP WITH SEROUS DRAINAGE WAS CHANGED. FINALLY ABLE TO SLEEP AFTER 0300. CALL LIGHT IN REACH AND BED ALARM ON.
[2019-10-04 07:00] VITALS: BP 151/71
--- NOTE | 2019-10-04 18:28 | NUR ---
AM ASSESSMENT AND VITAL SIGNS COMPLETED DOCUMENTED. PT REQUIRES A LOT OF ENCOURAGEMENT TO DO MINIMAL ACTIVITY AND FREQUENTLY REFUSES TO MAKE AN ATTEMPT. PRN PAIN MEDICATIONS GIVEN TWICE WITH PARTIAL RELIEF. PT REFUSES TO TRY ICE OR REPOSITIONING AT THIS TIME. FALL PRECAUTIONS AND HOURLY ROUNDING CONTINUE.
[2019-10-04 20:00] VITALS: BP 161/62
--- NOTE | 2019-10-04 23:46 | NUR ---
PATIENT C/O PAIN 10/10 AT RIGHT HIP AND RIGHT LEG. HYDROCODONE 2 TABS GIVEN AT 1930. PATIENT REPOSITIONED EVERY 20-30 MINUTES, ICE TO HIP. AT [address] REGARDING PAIN MEDICATION NOT BRINGING PATIENT'S PAIN LEVEL DOWN. NEW ORDERS FOR PERCOCET AND BENADRYL GIVEN BY DR. MUKHERJEE.
[2019-10-05 07:29] VITALS: BP 159/73
[2019-10-05 19:00] VITALS: BP 99/44
--- NOTE | 2019-10-06 05:11 | NUR ---
PATIENT HAS SLEPT OFF AND ON DURING THE NIGHT. VSS ON RA. PAIN WELL CONTROLLED. MEDICATIONS GIVEN ORDERED AND CHARTED. PATIENT INCONTINENT OF URINE AND ASHLEY CARE PERFORMED. PATIENT REFUSING TURNS. DRESSING TO RIGHT HIP WAS CHANGED DURING THE NIGHT. DRESSING IS C/D/I. FALL PRECAUTIONS IN PLACE AND HOURLY ROUNDS MADE. WILL CONTINUE WITH THERAPIES AND NURSING TO CONTINUE MONITORING.
[2019-10-06 07:31] LABS: HEMATOCRIT 19.8 % (37.0-47.0); HEMOGLOBIN 6.7 gm/dL (12.0-15.0)
[2019-10-06 07:58] VITALS: BP 134/65
[2019-10-06 11:29] VITALS: BP 127/63; BP 137/65; BP 139/66; BP 144/64; BP 148/68
[2019-10-06 16:03] LABS: HEMATOCRIT 23.5 % (37.0-47.0); HEMOGLOBIN 7.9 gm/dL (12.0-15.0)
[2019-10-06 19:15] VITALS: BP 149/72
--- NOTE | 2019-10-06 20:00 | NUR ---
ALERT AND ORIENTED X4. UP WITH 1-2 ASSIST, GAIT BELT AND WALKER. PO PAIN MEDICATION HELPFUL FOR RIGHT HIP PAIN. LIDOCAINE PATCH ALSO USED ON RIGHT HIP FOR PAIN. DRESSING CHANGED TO RIGHT HIP DUE TO DRESSING LEAKING SERROSANGUINEOUS DRAINAGE. [facility] RESULTS CALLED THIS AM TO DR. REJI THAKUR ORDERED WITH NO ADVERSE REACTIONS OR SIDE EFFECTS. O2 SAT MONITOR SHOWED O2 SATS ABOVE 90%. DRY DRESSING OVER LEFT KNEE ABRAISION. PATIENT USES CALL LIGHT WITHIN REACH. FALL PRECAUTIONS IN PLACE. BED ALARM AND CHAIR ALARM USED.
[2019-10-07 05:43] LABS: HEMATOCRIT 21.1 % (37.0-47.0); HEMOGLOBIN 7.3 gm/dL (12.0-15.0)
--- NOTE | 2019-10-07 06:17 | NUR ---
PATIENT HAS SLEPT WELL THROUGHOUT MOST OF THE NIGHT. VSS ON RA. PAIN WELL CONTROLLED. MEDICATIONS GIVEN ORDERED AND CHARTED. DRESSING TO RIGHT HIP IS C/D/I. FALL PRECAUTIONS IN PLACE AND HOURLY ROUNDS MADE. WILL CONTINUE WITH THERAPIES AND NURSING TO MONITOR.
[2019-10-07 08:00] VITALS: BP 130/62
--- NOTE | 2019-10-07 15:21 | NUR ---
ASSUMMED CARE OF PT AT 0730, PT ALERT AND ORIENTED, TRANSFERS WITH ASSIST OF 2 GB WALKER, CUEING, NEEDS ENCOURAGEMENT TO MOVE, DENIES PAIN AND WHEN ASKED WHERE SHE WOULD LIKE PAIN PATCH SHE STATED THE ONLY PLACE SHE WAS HAVING PAIN WAS IN HER HIP WHEN SHE MOVED, LIDOCAINE PATCH APPLIED TO RIGHT HIP, DRESSING SATURATED WITH SEROUS SANGUINOUS DRAINAGE, CHANGED X 1 THIS SHIFT, PT STATES HAS NOT HAD BM X 2 DAYS, PT REFUSED THE SCHEDULED ENEMA BUT DID AGREE TO MILK OF MAGNESIA, DISCUSSED BLOOD SUGARS WITH PHYSICIAN, SLIDING SCALE ORDERS OBTAINED, PT UP IN CHAIR MOST OF SHIFT, TAKING FOOD AND FLUIDS WELL, VOIDS PER COMMODE, PARTICIPATED IN ALL THERAPIES, HOURLY ROUNDING COMPLETED, ASSESSMENT COMPLETE, WILL CONTINUE TO MONITOR.
[2019-10-07 19:00] VITALS: BP 147/68
[2019-10-08 05:38] LABS: ABSOLUTE BASOPHILS 0.1 thou/uL (0.0-0.2); ABSOLUTE EOSINOPHILS 0.1 thou/uL (0.0-0.7); ABSOLUTE LYMPHOCYTES 1.6 thou/uL (0.8-5.3); ABSOLUTE MONOCYTES 0.7 thou/uL (0.0-1.2); ABSOLUTE NEUTROPHILS 10.3 thou/uL (1.6-8.1); BASOPHILS 0.4 %; EOSINOPHILS 0.8 %; HEMATOCRIT 23.5 % (37.0-47.0); HEMOGLOBIN 8.3 gm/dL (12.0-15.0); LYMPHOCYTES 12.6 %; MCH 30.7 pg (26.0-34.0); MCHC 35.1 g/dL (28.0-37.0); MCV 87.6 fL (80.0-100.0); MONOCYTES 5.8 %; MPV 7.2 fl. (7.2-11.1); NUCLEATED RBCS 0 /100WBC; PLATELET COUNT* 343 thou/uL (150-400); POLYS 80.4 %; RBC 2.69 mil/uL (4.20-5.00); RDW-CV 16.3 % (10.5-14.5); WBC 12.8 thou/uL (4.0-11.0)
--- NOTE | 2019-10-08 07:59 | NUR ---
ASSUMED CARES AT 1920. ALERT AND ORIENTED. PT WANTED TO SLEEP IN RECLINER AND DID SO UNTIL 99 THEN AWOKE TO USE BSC. STARTED TO GET UP AND MOVE BUT HAD UNCONTROLLED PAIN TO RIGHT HIP/LEG THAT INCREASED WITH EACH MOVEMENT. PT CALLING OUT IN PAIN AND CRYING. HAD NO RELIEF WITH REPOSITIONING OR ICE OR PERCOCET GIVEN. ORDER OBTAINED FOR DILAUDID IV X 1, FLEXERIL AND XANAX. ALL WAS GIVEN OVERNIGHT WITH LITTLE IMMEDIATE RELIEF. FINALLY AFTER 0500 PT STARTED FEELING SOME RELIEF OF PAIN. DRESSINGS TO RIGHT HIP WITH SEROUS DRAINAGE AND CHANGED X 3. MAX ASSIST X 2 PERSON. GAIT BELT AND WALKER. SPOKE WITH GRANDDAUGHTER AND SHE IS REQUESTING XRAYS. SPOKE WITH DR SPAULDING. ORDER OBTAINED FOR RIGHT HIP XRAY AND CONSULT ORTHO PLACED. PT RESTING IN BED AT THIS TIME. CALL LIGHT IN REACH AND BED ALARM ON.
[2019-10-08 08:27] VITALS: BP 174/77
--- NOTE | 2019-10-08 16:30 | NUR ---
ASSUMMED CARE OF PT AT 0730, PT ALERT AND ORIENTED, PT RESTING IN BED BUT C/O RIGHT HIP PAIN, PT STATES SHE IS NAUSEATED BECAUSE OF HER PAIN, PT MEDICATED FOR NAUSEA AND PAIN, SMALL BILE EMESIS X 1, PT DID STATE HAD GD RELIEF FROM NAUSEA, WHEN TURN PT SHE CRIES/WHINES, REFUSED PHYSICAL THERAPY, PT HAS TAKEN FOOD AND FLUIDS THIS SHIFT, PT VERY SLEEPY AND HAS NOT C/O OF PAIN OR NEED FOR PAIN MEDICATION SINCE PAIN MED GIVEN THIS AM, SLEEPING SOUNDLY ALL AFTERNOON, HIP X/R COMPLETED, DOPPLER COMPLETED, ORTHO HERE TO SEE PT, DRESSING CHANGED TO HIP WOUNDS, MODERATE AMOUNT OF SEROUS DRAINAGE ON DRESSING, REPOSITIONED IN BED, IV LEFT UA INTACT, HOURLY ROUNDING COMPLETED, ASSESSMENT COMPLETE, WILL CONTINUE TO MONITOR.
--- NOTE | 2019-10-08 16:55 | NUR ---
SW called and spoke with pt to review team conference summary and plan for pt to remain on rehab unit at least one more week with team to reassess pt length of stay during team conference next Sunday. Pt in agreement with plan. Pt confirmed that the family is installing a ramp into the home on Sunday and pt has an electric wc and a RW already. SW to continue to follow to assist with safe dc planning.
[2019-10-08 20:04] VITALS: BP 135/66
--- NOTE | 2019-10-09 01:06 | NUR ---
ASSUMED CARE @ 1934-10/07-SUN.APPEARS SLEEPING IN BED W/ HOB UP.BED ALARM ALREADY ON @ 1934.AWAKENED @ 2139 FOR ASSSESSMENT & FOR HS MEDS.PRN MOM GIVEN ORAL @ 2150.HS DOSE MELATONIN HELD.SLEEPING ALREADY @ 1934.SALINE LOCK LEFT FOREARM HAS GOOD BLOOD RETURN & FLUSHED GOOD 2199.HEELS OFF BED @ 2199.ON HOURLY ROUNDS.SECURITY PROFESSIONAL DOING ODD HOUR ROUNDS.
--- NOTE | 2019-10-09 05:04 | NUR ---
SLEEPING SINCE 193 & SLEEPING GOOD ALL NIGHT.USED BEDPAN W/ 2 ASSISTS X1. ASHLEY CARE DONE & MOISTURE BARRIER CREAM APPLIED X1.SEE PAIN MANAGEMENT @ 0156. REFUSED HS SNACK.NO BM YET FROM PRN MOM GIVEN @ 5941.NO NAUSEA ,NO EMESIS DURING NIGHT.
[2019-10-09 08:00] VITALS: BP 134/63
--- NOTE | 2019-10-09 17:24 | NUR ---
AM ASSESSMENT AND VITAL SIGNS COMPLETED DOCUEMNTED. PT HAS BEEN MORE COMFORTABLE TODAY AND CONTINUES TO WORK WITH ALL THERAPIES. PT TRANSFERS WITH MOD ASSIST, REQUIRES A LOT OF ENCOURAGEMENT AND CUES. FALL PRECAUTIONS AND HOURLY ROUNDING CONTINUE.
[2019-10-09 19:48] VITALS: BP 151/62
--- NOTE | 2019-10-10 04:05 | NUR ---
ASSUMED CARE OF PT 10/09/19 AT APPROX 1930. PT A&OX4, ON ROOM AIR, VSS. PAIN MEDS REQUESTED AND GIVEN ORDERED. ASSESSMENTS AND HOURLY ROUNDINGS COMPLETE. WILL CONTINUE TO MONITOR.
[2019-10-10 04:47] LABS: ABSOLUTE BASOPHILS 0.1 thou/uL (0.0-0.2); ABSOLUTE EOSINOPHILS 0.2 thou/uL (0.0-0.7); ABSOLUTE LYMPHOCYTES 1.8 thou/uL (0.8-5.3); ABSOLUTE MONOCYTES 0.7 thou/uL (0.0-1.2); ABSOLUTE NEUTROPHILS 7.7 thou/uL (1.6-8.1); BASOPHILS 0.7 %; EOSINOPHILS 2.2 %; HEMATOCRIT 21.5 % (37.0-47.0); HEMOGLOBIN 7.3 gm/dL (12.0-15.0); LYMPHOCYTES 17.4 %; MCH 29.8 pg (26.0-34.0); MCV 87.8 fL (80.0-100.0); MONOCYTES 6.9 %; MPV 7.2 fl. (7.2-11.1); NUCLEATED RBCS 0 /100WBC; PLATELET COUNT* 332 thou/uL (150-400); POLYS 72.8 %; RBC 2.45 mil/uL (4.20-5.00); RDW-CV 16.4 % (10.5-14.5); WBC 10.6 thou/uL (4.0-11.0)
[2019-10-10 08:00] VITALS: BP 167/77
--- NOTE | 2019-10-10 18:05 | NUR ---
AM ASSESSMENT AND VITAL SIGNS COMPLETED DOCUMENTED. PT CONTINUES TO PROGRESS SLOWLY. DRESSING TO RIGHT THIGH CHANGED ONCE, INCISION IS WELL APPROXIMATED, BHAVNA INTACT, NO REDNESS. PAIN HAS BEEN WELL CONTROLLED THIS SHIFT. FALL PRECAUTIONS AND HOURLY ROUNDING CONTINUE.
[2019-10-10 20:09] VITALS: BP 117/52
--- NOTE | 2019-10-11 01:06 | NUR ---
ASSUMED CARE @ 1911-10/09-SUNDAY.APPEARS SLEEPING IN BED W/ HOB UP.PALE.BED ALARM PUT ON @ 1911.AWAKENED @ 2149 FOR ASSESSMENT & FOR HS MEDS.HS DOSE MELATONIN HELD.PATIENT ALREADY SLEEPING @ 1911.SALINE LOCK LEFT FOREARM HAS NO BLOOD RETURN BUT FLUSHED GOOD @ 2250.ON HOURLY ROUNDS.SR VICE PRESIDENT DOING ODD HOUR ROUNDS.AWAKENED ONLY TO TURN.
[2019-10-11 05:00] LABS: ABSOLUTE BASOPHILS 0.1 thou/uL (0.0-0.2); ABSOLUTE EOSINOPHILS 0.3 thou/uL (0.0-0.7); ABSOLUTE MONOCYTES 0.6 thou/uL (0.0-1.2); ABSOLUTE NEUTROPHILS 6.1 thou/uL (1.6-8.1); BASOPHILS 0.5 %; EOSINOPHILS 3.8 %; HEMATOCRIT 21.4 % (37.0-47.0); HEMOGLOBIN 7.3 gm/dL (12.0-15.0); LYMPHOCYTES 22.3 %; MCH 29.6 pg (26.0-34.0); MCHC 34.2 g/dL (28.0-37.0); MCV 86.5 fL (80.0-100.0); MONOCYTES 6.7 %; NUCLEATED RBCS 0 /100WBC; PLATELET COUNT* 368 thou/uL (150-400); POLYS 66.7 %; RBC 2.47 mil/uL (4.20-5.00); RDW-CV 16.4 % (10.5-14.5); WBC 9.2 thou/uL (4.0-11.0)
--- NOTE | 2019-10-11 05:02 | NUR ---
SLEEPING SINCE 1911.TOOK FRIED ZUCCHINI & ROLL HS SNACKS.SEE PAIN MANAGEMENT @ 0331.DRSGS CHANGED RIGHT HIP @ 3128.USED BEDPAN X1 W/ 2 PERSON ASSIST.
[2019-10-11 08:23] VITALS: BP 160/68
--- NOTE | 2019-10-11 11:42 | NUR ---
REMAINS A&OX4. RESPIRATIONS EVEN AND UNLABORED ON ROOM AIR. DENIES PAIN. MEDICATED WITH PAIN MED PER MD ORDER WITH RELIEF NOTED. DRESSING TO RIGHT HIP CDI. VSS. OUT OF BED WITH 2 ASSIST TO BSC. CONTINUES TO WORK WITH THERAPY TOWARD DISCHARGE GOAL. CALL THEODORE AND PERSONAL ITEMS WITHIN REACH. NSG WILL CONTINUE TO ASSESS.
--- NOTE | 2019-10-11 18:03 | NUR ---
REMAINS ALERT AND AWAKE. RESPIRATIONS EVEN AND UNLABORED ON ROOM AIR. DENIES PAIN. UP TO CHAIR AND BSC WITH MAX ASSIST. FSBS 136 MG/DL. DRESSING TO INCISION SITE ON RIGHT HIP REMAINS C/D/I. MINIMAL PARTICIPATION WITH PT. CALL THEODORE AND PERSONAL ITEMS WITHIN REACH. NSG WILL CONTINUE TO ASSESS.
[2019-10-11 20:00] VITALS: BP 140/70
--- NOTE | 2019-10-12 05:08 | NUR ---
ASSUMED CARES AT 1920. ALERT AND ORIENTED. PLEASANT. WBAT RLE. MAX ASSIST X 1-2 PERSON. GAIT BELT AND WALKER. UP TO BSC X 3. PAIN MEDS WERE GIVEN NEEDED. NYSTATIN POWDER TO PANNUS. DRESSING TO RIGHT HIP CHANGED. INCISION WELL APPROXIMATED WITH BHAVNA. SLEPT OFF AND ON IN BED AND RECLINER. CALL LIGHT IN REACH AND BED ALARM ON.
[2019-10-12 05:31] LABS: ABSOLUTE BASOPHILS 0.1 thou/uL (0.0-0.2); ABSOLUTE EOSINOPHILS 0.3 thou/uL (0.0-0.7); ABSOLUTE LYMPHOCYTES 2.1 thou/uL (0.8-5.3); ABSOLUTE MONOCYTES 0.8 thou/uL (0.0-1.2); ABSOLUTE NEUTROPHILS 7.1 thou/uL (1.6-8.1); BASOPHILS 0.9 %; EOSINOPHILS 2.8 %; HEMATOCRIT 21.3 % (37.0-47.0); HEMOGLOBIN 7.1 gm/dL (12.0-15.0); LYMPHOCYTES 20.4 %; MCH 29.3 pg (26.0-34.0); MCHC 33.5 g/dL (28.0-37.0); MCV 87.6 fL (80.0-100.0); MPV 7.2 fl. (7.2-11.1); NUCLEATED RBCS 0 /100WBC; PLATELET COUNT* 404 thou/uL (150-400); POLYS 67.9 %; RBC 2.43 mil/uL (4.20-5.00); RDW-CV 16.9 % (10.5-14.5); WBC 10.5 thou/uL (4.0-11.0)
[2019-10-12 08:22] VITALS: BP 140/71
--- NOTE | 2019-10-12 15:50 | NUR ---
ASSUMMED CARE OF PT AT 0730, PT ALERT AND ORIENTED, TRANSFERS WITH 1-2 GB WALKER CUEING, UP IN CHAIR MOST OF SHIFT, VOIDS PER BSC, PT C/O HIP/LEG PAIN, MEDICATED PER ORDER, LIDOCAINE PATCH TO RIGHT THIGH, TAKING FOOD AND FLUIDS WELL, DRESSING INTACT, REDDENED AREA UNDER PANNUS, NYSTATIN APPLIED, HOURLY ROUNDING COMPLETED, ASSESSMENT COMPLETE, WILL CONTINUE TO MONITOR.
[2019-10-12 20:00] VITALS: BP 127/76
--- NOTE | 2019-10-13 04:51 | NUR ---
ASSUMED CARE AT 1920. ALERT AND ORIENTED. C/O PAIN TO RIGHT HIP AND LEG. PAIN MEDS GIVEN NEEDED. MAX ASSIST X 1-2 PERSON. GAIT BELT AND WALKER. HAS DIFFICULTY WITH PICKING UP FEET WITH TRANSFERS. NEEDS MUCH ASSIST WITH BOOST FROM SIT TO STAND. TRANSFERS LIMITED DUE TO C/O PAIN. UP TO BSC NUMEROUS TIMES OVERNIGHT. PT ATTEMPTED TO HAVE BM BUT UNABLE TO. LAXATIVES GIVEN. SUPPOSITORY GIVEN FOR FECAL IMPACTION. PT UNABLE TO TOLERATE MANUAL DISIMPACTION. SLEPT LITTLE. WILL CONTINUE TO MONITOR.
[2019-10-13 07:48] VITALS: BP 132/63
--- NOTE | 2019-10-13 17:07 | NUR ---
PT A&OX4 VSS.PT HAS LIDOCAINE PATCH TO R HIP. PT PASSING LIQUID STOOLS THIS AM, SM FIRM STOOL THIS AFTERNOON. PT UP TO RECLINER. PT UP TO BSC W/ ASSIST X1, GAIT BELT/WALKER. PT HAS EPISODES OF INCONTINENCE THIS SHIFT R/T URGENCY OF BOWELS. PT DECLINES BRIEF STATING SHE IS ALLERGIC. NYSTATIN AT BEDSIDE FOR REDNESS IN ABD FOLDS. DRESSING TO L KNEE C/D/I. BHAVNA REMOVED FROM R HIP INCISION THIS AM PRIOR TO START OF THIS NURSE'S SHIFT. INCISION OPEN TO AIR, NO REDNESS, BLEEDING\DRAINAGE NOTED. PT IS ACCUCHECK AND INSULIN ADMINISTERED DIRECTED. PT REFUSED ENEMA THIS AM. PT RE-EDUCATED REGARDING OPIATE USE AND CONSTIPATION. PT STATES UNDERSTANDING. PT RESTS IN RECLINER WITH CALL LIGHT IN REACH, WILL CONTINUE TO MONITOR.
[2019-10-13 19:15] VITALS: BP 143/63
--- NOTE | 2019-10-14 05:05 | NUR ---
ASSUMED CARES AT 1920. ALERT AND ORIENTED. PLEASANT. PAIN MEDS GIVEN FOR RIGHT HIP PAIN. MAX ASSIST 1-2 PERSON. GAIT BELT AND WALKER. UP TO BSC. DID HAVE VERY SMALL BLOOD TINGED STOOL X 1. INCONTINENCE IN BED WELL. NURSING DID ALL CARES. INCISIONS TO RIGHT HIP WELL APPROXIMATED AND PARISH. REDNESS TO PANNUS. APPLIED NYSTATIN POWDER. RESTLESS NIGHT. GOT UP TO RECLINER FOR SHORT TIME THEN BACK TO BED. SLEEPING POORLY. CALL LIGHT IN REACH AND BED ALARM ON.
[2019-10-14 07:49] LABS: HEMATOCRIT 21.4 % (37.0-47.0); HEMOGLOBIN 7.4 gm/dL (12.0-15.0); MCH 29.7 pg (26.0-34.0); MCHC 34.7 g/dL (28.0-37.0); MCV 85.6 fL (80.0-100.0); RBC 2.49 mil/uL (4.20-5.00); RDW-CV 16.7 % (10.5-14.5); WBC 9.2 thou/uL (4.0-11.0)
[2019-10-14 07:59] LABS: CALCIUM 8.2 mg/dL (8.5-10.1); CREATININE 2.2 mg/dL (0.6-1.3); MAGNESIUM 1.8 mg/dL (1.8-2.4); POTASSIUM 4.6 mmol/L (3.5-5.1)
[2019-10-14 08:17] VITALS: BP 142/65
--- NOTE | 2019-10-14 16:24 | NUR ---
ASSUMMED CARE OF PT AT 0730, PT ALERT AND ORIENTED, TRANSFERS WITH ASSIST OF 1-2 GB AND WALKER, SHE NEEDS ASSIST TO STAND WHEN SHE GETS FATIGUED, PT INCONTINENT OF URINE AND STOOL MULTIPLE TIMES THIS SHIFT, PT ON COMMODE SEVERAL TIMES WITH URINE AND STOOL, OOZING STOOL CONTINUOSLY,FLEETS ENEMA GIVEN AND LARGE AMOUNT OF SOFT FORMED STOOL REMOVED MANUALLY, PT HAS DECREASED APETITE, INCISION MASSAGE THERAPIST, REDDENED, INTACT, PT C/O HIP PAIN, MEDICATED X2 FOR PAIN, PT AWARE OF NEED FOR URINE SPECIMEN, PARTICIPATED IN ALL THERAPIES, HOURLY ROUNDING COMPLETED, ASSESSMENT COMPLETE, WILL COTNINUE TO MONITOR.
--- NOTE | 2019-10-14 16:59 | NUR ---
SW called and spoke with pt Miky in preparation for team conference tomorrow. Pt confirmed that the ramp is installed. Pt did not have any questions or concerns just commented that he knows pt really wants to be able to dc home soon. SW to continue to follow to assist with safe dc planning.
[2019-10-14 19:15] VITALS: BP 121/68
[2019-10-15 08:30] VITALS: BP 114/60
[2019-10-15 09:19] LABS: CALCIUM 8.4 mg/dL (8.5-10.1); CREATININE 2.1 mg/dL (0.6-1.3); MAGNESIUM 1.7 mg/dL (1.8-2.4); POTASSIUM 4.4 mmol/L (3.5-5.1)
--- NOTE | 2019-10-15 14:27 | NUR ---
Nutrition: weekly followup. Pt not eating well, 50% of meals. Ordered Glucerna shakes for added nutrition. Will continue to follow weekly.
--- NOTE | 2019-10-15 16:54 | NUR ---
SW called and spoke with pt Miky to review team conference summary and plan for pt to remain on rehab unit one more week with possible dc after team next Sunday to either SNF or home with assistance and wc level. Family training to be determined; pt to provide SW with time he can arrange for family training. SW to continue to follow to assist with safe dc planning.
--- NOTE | 2019-10-15 18:22 | NUR ---
AM ASSESSMENT AND VITAL SIGNS COMPLETED DOCUMENTED. PT HAS BEEN PLEASANTLY CONFUSED AT TIMES TODAY. 500CC FLUID BOLUS GIVEN FOR LOW SODIUM. INCISIONS TO RIGHT HIP. PARISH, WELL APRROXIMATED. FAL [id number] AND HOURLY ROUNDING CONTINUE.
[2019-10-15 19:00] VITALS: BP 126/52
--- NOTE | 2019-10-16 01:10 | NUR ---
ASSUMED CARE @ 1919-10/14-SUN.AWAKE-SITS IN RECLINER W/ LE'S UP.WATCHING TV. CHAIR ALARM ALREADY ON @ 1919.ASSISED TO BED W/ 2 PERSONS @ 2309.HOB UP.SIDERAILS X4 UP.BED ALARM PUT ON @ 2309.NEW ORDER FOUNDPUT ON BY DR MATTI EUBANKS.INC LARGE AMOUNT URINE @ 2309.BLADDER SCAN FOR URINE RESIDUAL @ 2330- 319 ML.ON HOURLY ROUNDS.TITLE AGENT DOING ODD HOUR ROUNDS.
--- NOTE | 2019-10-16 05:15 | NUR ---
SLEPT LATE @ 0000-10/15-.INC URINE X2.INC BM X2.ASHLEY CARE DONE X2.MOISTURE BARRIER CREAM APPLIED TO PINK COCCYX X2.TOOK 50% HS SNACKS-OBEY CRACKERS & COOKIES W/ H20.WANTS TO SIT UP IN RECLINER @ 0345 & ASSISTED.LE'S UP.PULL UPS PUT ON @ 0345.
[2019-10-16 10:45] LABS: HEMATOCRIT 23.1 % (37.0-47.0); HEMOGLOBIN 7.7 gm/dL (12.0-15.0)
[2019-10-16 10:57] LABS: CALCIUM 8.2 mg/dL (8.5-10.1); CREATININE 2.2 mg/dL (0.6-1.3); POTASSIUM 4.6 mmol/L (3.5-5.1)
[2019-10-16 12:19] LABS: HEMATOCRIT 22.9 % (37.0-47.0); HEMOGLOBIN 7.8 gm/dL (12.0-15.0); MCH 29.2 pg (26.0-34.0); MCHC 33.9 g/dL (28.0-37.0); MCV 86.3 fL (80.0-100.0); MPV 7.6 fl. (7.2-11.1); RBC 2.65 mil/uL (4.20-5.00); RDW-CV 16.1 % (10.5-14.5); WBC 10.3 thou/uL (4.0-11.0)
[2019-10-16 12:33] LABS: CALCIUM 8.1 mg/dL (8.5-10.1); CREATININE 2.2 mg/dL (0.6-1.3); POTASSIUM 4.6 mmol/L (3.5-5.1)
[2019-10-16 12:37] LABS: ALBUMIN 2.4 g/dL (3.4-5.0); TOTAL BILIRUBIN 0.9 mg/dL (<0.1-1.0); TOTAL PROTEIN 6.6 g/dL (6.4-8.2)
[2019-10-16 16:31] LABS: URINE BILIRUBIN NEGATIVE (Negative); URINE BLOOD 1+ (Negative); URINE COLOR YELLOW; URINE GLUCOSE-RANDOM NEGATIVE (Negative); URINE KETONES NEGATIVE (Negative); URINE NITRITE-REFLEX NEGATIVE (Negative); URINE PROTEIN 2+ (Negative); URINE SPECIFIC GRAVITY 1.015 (1.005-1.030); URINE UROBILINOGEN 0.2 E.U./dl (0.2-1.0)
[2019-10-16 16:32] LABS: URINE CLARITY CLOUDY; URINE LEUKOCYTES-REFLEX 2+ (Negative)
[2019-10-16 16:37] LABS: SQUAMOUS 4-10 Moderate /LPF (0-3); URINE WBC-REFLEX >25 Many /HPF (0-5)
[2019-10-16 16:38] LABS: BACTERIA-REFLEX >30 Many /HPF (None Seen); CASTS None Seen /LPF (None Seen); CRYSTALS None Seen /LPF (None Seen); URINE RBC 3-10 Few /HPF (0-2)
[2019-10-16 19:40] VITALS: BP 139/73
--- NOTE | 2019-10-17 05:42 | NUR ---
ASSUMED CARE AT 1920. ALERT AND ORIENTED BUT CONFUSED AND IMPULSIVE AT TIMES. PICKED AT AREAS ON RIGHT FOREARM THAT CAUSED SKIN TEARS. PT ALSO SCRATCHED AT RIGHT DISTAL LEG INCISION SITE. A VERY SMALL AMOUNT OF BLOOD WAS FOUND IN RECLINER THAT HAD DRAINED FROM LEG. BLOOD APPEARS TO HAVE COME FROM 1 MM AREA ON INCISION LINE THAT PT HAD SCRATCHED. INCISION LINE IS NOT GAPING OPEN AND NO FURTHER BLEEDING NOTED. MEPILEX WAS PLACED OVER SITE. GARY CATHETER WAS PLACED BY LACEY ANTONY DURING THE DAY. GARY CATH DD CLOUDY JASON URINE. MOD ASSIST WITH GAIT BELT AND WALKER. DID HAVE STOOL INCONTINENCE. PAIN TO RIGHT HIP SEEMS BETTER CONTROLLED. PT DID NOT HARDLY SLEEP AT ALL. KEPT WANTING TO GET UP INTO RECLINER THROUGHOUT THE NIGHT. BED ALARM ON AND CALL LIGHT IN REACH.
[2019-10-17 09:09] VITALS: BP 167/74
--- NOTE | 2019-10-17 17:50 | NUR ---
ALERT AND ORIENTED THIS AM BUT THIS EVENING BECAME CONFUSED AND WAS YELLING OUT FOR FAMILY MEMBERS AND TRIED TO GET UP ON OWN. NOT USING CALL LIGHT THIS EVENING. STARTED ON ANTIBIODIC FOR UTI. HAS GARY CATHETER PATENT WITH CLOUDY YELLOW URINE. PO PAIN MEDICATION MADE PATIENT DROWSY AND DR CHANGE MEDICATION. DRESSING DRY AND INTACT TO RIGHT ARM AND RIGHT HIP. FALL PRECAUTIONS IN PLACE. BED ALARM AND CHAIR ALARM USED.
[2019-10-17 20:04] VITALS: BP 135/43
--- NOTE | 2019-10-18 01:52 | NUR ---
ASSUMED CARE @ 193.WANTS TO SIT IN BSC.ASSISTED W/ 2 PERSONS TO HELP GETTING UP FROM RECLINER & FROM BSC.HAD MOD BM.CHAIR ALARM ON WHILE IN RECLINER.GARY CATHETER-PATENT.ASSISTED TO BED W/ 2 PERSONS @ 2219.HOB UP. BED ALARM PUT ON @ 2219.ON HOURLY ROUNDS.COIN MACHINE SERVICER REPAIRER DOING ODD HOUR ROUNDS.
--- NOTE | 2019-10-18 05:43 | NUR ---
SLEEPING @ 0000 & SLEPT GOOD ALL NIGHT.INC BM X2 & HAD MOD BM IN BSC @ 1930. ASHLEY CARE DONE X2.MOISTURE BARRIER CREAM APPLIED TO RED ASHLEY ANAL AREAS X2. WANTS TO GET UP IN RECLINER @ 0515 & ASSISTED W/ LE'S UP & CHAIR ALARM PUT ON. GARY SECUREMENT DEVICE CHANGED @ 0515.
[2019-10-18 05:49] LABS: CALCIUM 8.1 mg/dL (8.5-10.1); MAGNESIUM 1.7 mg/dL (1.8-2.4); POTASSIUM 4.3 mmol/L (3.5-5.1)
[2019-10-18 05:58] LABS: HEMOGLOBIN 6.5 gm/dL (12.0-15.0)
--- NOTE | 2019-10-18 06:56 | NUR ---
CRITICAL LABS FOR HGB & HCT RECEIVED @ 6150.YOU CALL MD CHAN @ 2517.DR BUTTS ENTERED ORDERS @ 6046.
[2019-10-18 08:31] VITALS: BP 143/62
[2019-10-18 17:55] VITALS: BP 150/58; BP 151/73; BP 165/75
--- NOTE | 2019-10-18 18:32 | NUR ---
AM ASSESSMENT AND VITAL SIGNS COMPLETED DOCUMENTED. PT'S HGB THIS AM WAS 6.5. ONE UNIT OF PRBC'S OREDERED BUT THE LAB HAD DIFFICULTY WITH THE CROSSMATCH SO UNIT STARTED AT 1820. PT IS TOLERATING WELL. FALL PRECAUTIONS AND HOURLY ROUNDING CONTINUE.
[2019-10-18 19:35] VITALS: BP 151/73
--- NOTE | 2019-10-19 01:39 | NUR ---
ASSUMED CARE @ 1914-10/17-SAT.SITS IN RECLINER ON PHONE.LE'S UP.BLOOD TRANSFUSION IN PROGRESS.CHAIR ALARM ON ALREADY @ 1914.SEE PAIN MANAGEMENT @ 2044.BLOOD TRANSFUSION COMPLETED @ 2134.SEE VS.HOB IN BED.BED ALARM PUT ON @ 2204.HEELS OFF BED.SAT IN BSC @ 0120 FOR SMALL BM & THEN,WANTS TO SIT IN RECLINER @ 0130 W/ ASSIST.LE'S UP WHILE IN RECLINER.ON HOURLY ROUNDS.AVIATION TACTICAL READINESS OFFICER DOING ODD HOUR ROUNDS.
[2019-10-19 04:26] LABS: HEMATOCRIT 27.7 % (37.0-47.0)
[2019-10-19 04:36] LABS: HEMOGLOBIN 9.4 gm/dL (12.0-15.0)
--- NOTE | 2019-10-19 05:49 | NUR ---
SLEEPING @ 2320 & 0000-10/18-SUN.AWAKE @ 0120 & USED BSC X1 FOR SMALL BM. SITS IN RECLINER W/ LE'S UP @ 0130.WANTS TO GO BACK TO BED @ 0420.SLEEPING @ 0520.TOOK ALL APPLE SAUCE HS SNACK.
[2019-10-19 08:00] VITALS: BP 150/69
--- NOTE | 2019-10-19 18:23 | NUR ---
AM ASSESSMENT AND VITAL SIGNS COMPLETED DOCUMENTED. PT HAS BEEN A/O TODAY, STATES SHE IS FEELING MUCH BETTER. FC TO DD WITH 1100 CC OF CLEAR YELLOW URINE OUT THIS SHIFT. FALL PRECAUTIONS AND HOURLY ROUNDING CONTINUE.
[2019-10-19 19:35] VITALS: BP 181/77
--- NOTE | 2019-10-20 01:28 | NUR ---
ASSUMED CARE @ 1939-10/18-SUN.SITS IN RECLINER W/ LE'S UP WATCHING TV.GARY CATHETER-PATENT.DUL SUP GIVEN RECTALLY @ 2120 & ON HER LEFT SIDE.WHILE ON BSC- SOFT BM STUCK ON RECTAL AREA.DISIMPACTED SMALL AMOUNT BM.REFUSED HS MELATONIN. WANTS ONLY SIDERAILS X3 UP WHILE IN BED.HOB UP.ASSIST LIFTING LE'S INTO & OUT OF BED.BED ALARM PUT ON @ 2315.WANTS LIGHT ON @ NIGHT.ON HOURLY ROUNDS.CURTAIN STRETCHER ASSEMBLER DOING ODD HOUR ROUNDS.
--- NOTE | 2019-10-20 05:34 | NUR ---
SLEPT LATE @ 012-10/19-SUNDAY.REFUSED HS SNAck.used bsc x3 w/ assist.had bm x1 ONLY.INC SMEARS X2.ASHLEY CARE X2.MOISTURE BARRIER CREAM APPLIED TO PINK ASHLEY- RECTAL AREA X1.BED TO RECLINER X2 OR 3X.PHOTO TAKEN LEFT KNEE & DRSG CHANGED @ 0450.
[2019-10-20 06:00] VITALS: BP 184/82
--- NOTE | 2019-10-20 06:45 | NUR ---
REQUESTED TO GO BACK TO BED @ 5573.BP @ .BP RE-CHECKED @ .
[2019-10-20 07:22] LABS: HEMATOCRIT 27.3 % (37.0-47.0); HEMOGLOBIN 9.2 gm/dL (12.0-15.0)
[2019-10-20 07:28] LABS: CALCIUM 9.1 mg/dL (8.5-10.1); CREATININE 1.8 mg/dL (0.6-1.3); MAGNESIUM 1.7 mg/dL (1.8-2.4); POTASSIUM 4.6 mmol/L (3.5-5.1)
[2019-10-20 08:28] VITALS: BP 155/65
--- NOTE | 2019-10-20 18:39 | NUR ---
GARY CATHETER REMOVED. VOID X1. PRN PAIN MEDICATION GIVEN.
[2019-10-20 19:15] VITALS: BP 187/61
--- NOTE | 2019-10-21 04:50 | NUR ---
ASSUMED CARE AT 1920. ALERT AND ORIENTED. PAIN MEDS GIVEN FOR RIGHT HIP PAIN. RIGHT HIP INCISION WELL APPROXIMATED AND PARISH. SKIN TEARS TO RIGHT AND LEFT ARMS. MOD ASSIST WITH GAIT BELT AND WALKER. UP TO BSC. PT HAD BOTH STOOL AND URINARY INCONTINENCE FEW TIMES. NURSING DID ALL CARES. DESPITE INCONTINENCE, PT STILL HAD A BLADDER SCAN OF 800 CC. STRAIGHT CATH PERFORMED AND HAD 725 CC YELLOW URINE OUTPUT. REDNESS TO GROIN, BARRIER CREAM APPLIED. REDNESS TO UNDER BREASTS AND PANNUS. NYSTATIN POWDER APPLIED. PT AWAKE MAJORITY OF NIGHT. WANTED TO KEEP GETTING UP INTO RECLINER BUT PT HAD TO BE ENCOURAGED TO REST IN BED. CALL LIGHT IN REACH AND BED ALARM ON.
[2019-10-21 06:06] LABS: HEMATOCRIT 26.2 % (37.0-47.0); MCH 29.1 pg (26.0-34.0); MCHC 34.2 g/dL (28.0-37.0); MPV 6.9 fl. (7.2-11.1); RBC 3.08 mil/uL (4.20-5.00); RDW-CV 15.8 % (10.5-14.5); WBC 6.5 thou/uL (4.0-11.0)
[2019-10-21 06:18] LABS: ALBUMIN 2.4 g/dL (3.4-5.0); CALCIUM 8.7 mg/dL (8.5-10.1); CREATININE 1.8 mg/dL (0.6-1.3); MAGNESIUM 1.5 mg/dL (1.8-2.4); PHOSPHORUS* 4.2 mg/dL (2.5-4.9)
[2019-10-21 07:58] VITALS: BP 132/64
--- NOTE | 2019-10-21 12:26 | NUR ---
SW called pt in preparation for team conference tomorrow. Pt explained plan would be to have RW in home and electric wc for out of home but that they are considering finding a standard wc for inside the home. Pt said insurance covered pt RW and SW explained if it was within 5 years, they would not be able to cover another mobility device. Pt/family plan is for pt to be able to dc home with 24/7 care from family. Family training scheduled for Sunday at 9 am. SW to continue to follow to assist with safe dc planning.
--- NOTE | 2019-10-21 16:38 | NUR ---
PT TEAFUL AT TIMES THIS AM. BLADDER SCAN WITH 725ML. STRIAGHT CATHED WITH 625 OUT. INCONT OF STOOL X1. FABIOLA DOCKERY TO BE HERE AT 0900 FOR FAMILY EDUCATION. PT HOPES TO DISCHARGE TOMARROW. NO REQUEST FOR PAIN MEDICATION.
[2019-10-21 19:30] VITALS: BP 156/84
[2019-10-22 04:39] LABS: ABSOLUTE EOSINOPHILS 0.2 thou/uL (0.0-0.7); ABSOLUTE LYMPHOCYTES 1.9 thou/uL (0.8-5.3); ABSOLUTE MONOCYTES 0.6 thou/uL (0.0-1.2); ABSOLUTE NEUTROPHILS 3.4 thou/uL (1.6-8.1); BASOPHILS 0.7 %; HEMATOCRIT 25.2 % (37.0-47.0); HEMOGLOBIN 8.6 gm/dL (12.0-15.0); LYMPHOCYTES 30.9 %; MCH 29.3 pg (26.0-34.0); MONOCYTES 10.4 %; MPV 6.5 fl. (7.2-11.1); NUCLEATED RBCS 0 /100WBC; PLATELET COUNT* 302 thou/uL (150-400); RBC 2.93 mil/uL (4.20-5.00); RDW-CV 16.2 % (10.5-14.5); WBC 6.2 thou/uL (4.0-11.0)
[2019-10-22 05:06] LABS: ALBUMIN 2.3 g/dL (3.4-5.0); CALCIUM 8.8 mg/dL (8.5-10.1); CREATININE 1.7 mg/dL (0.6-1.3); POTASSIUM 4.2 mmol/L (3.5-5.1); TOTAL BILIRUBIN 0.7 mg/dL (<0.1-1.0)
--- NOTE | 2019-10-22 07:31 | NUR ---
ASSUMED CARES AT 1920. ALERT AND ORIENTED. PT CONTINUED TO HAVE SIGNIFICANT URINARY RETENTION DESPITE AT TIMES VOIDING OR HAVING URINARY INCONTINENCE. PVR CHECK AT 2200 WAS 785 CC AND STRAIGHT CATH WITH 775 CC OUTPUT. RECHECK PVR AT 0600 WAS 660 CC. DISCUSSED WITH PT THAT HAD BEEN STRAIGHT CATHED X 3 PAST 2 DAYS AND PT WILL NEED GARY CATHETER PLACED. PT RELUCTANT BUT AGREED. GARY CATHETER PLACED PER ORDER AT 0630. CATHETER DRAINGING CLEAR YELLOW URINE WITH 650 CC OUTPUT. THIS AM FOUND RIGHT HIP INCISION BLEEDING FROM SMALL SITE. PT HAD PICKED OFF SCAB. AREA CLEANSED AND DRSG PLACED. PAIN MEDS GIVEN NEEDED FOR KNEED PAIN. SLEPT SOME. CALL LIGHT IN REACH AND BED ALARM ON.
[2019-10-22 08:52] VITALS: BP 174/84
[2019-10-22] MEDS ORDERED: CIPRO500 MG PO (09:56)
[2019-10-22] MEDS ORDERED: SENNA-TIME S T1 EACH PO (09:56)
[2019-10-22] MEDS ORDERED: CALCIUM 600 +1 EAC1 PO (09:56)
[2019-10-22] MEDS ORDERED: IRON325 PO (09:56)
[2019-10-22] MEDS ORDERED: ACIDOPHILUS1 EAC4 PO (09:56)
[2019-10-22] MEDS ORDERED: FLEXERIL PO (10:04)
[2019-10-22 13:47] VITALS: BP 174/84
[2019-10-22 14:15] VITALS: BP 174/84
--- NOTE | 2019-10-22 14:32 | NUR ---
Team conference held today. Pt grddtr completed family training today and team reported that family training went well and pt ready to dc home with family care today and HH services to follow. SW faxed referral and dc orders to Pt/family preference of in [facility]. Pt grddtr to provide pt ride home.
[2019-10-22 14:53] VITALS: BP 174/84
--- NOTE | 2019-10-22 16:40 | NUR ---
ASSESSMENT COMPLETED DOCUMENTED THIS MORNING. PATIENT STABLE AND ANXIOUS TO GO HOME TODAY. GRANDDAUGHTER HERE AND PACKED UP PATIENT'S BELONGINGS, WENT HOME TO SET UP HOME SAFELY FOR PATIENT. TEAM CONFERENCE WITH DC ORDERS REC'D. 1405 DC INSTRUCTIONS GIVEN WITH UNDERSTANDING VERBALIZED, SIGNATURE OBTAINED. RENATA CHANEY HERE WITH DC INSTRUCTIONS UNDERSTOOD WELL. 1415 PATIENT DCD VIA W/C ACCOMPANIED BY FABIOLA TO FAMILY CAR IN GOOD CONDITION.
== END 2019-10-22 14:10 | disposition home or self-care (01) | DRG 542 ==
LOC: M.REH 16:52
PROVIDERS: Family Medicine; Internal Medicine; Nurse Practitioner; ADMIT Physical Medicine & Rehabilitation
PROC: 30233N1 Transfusion of Nonautologous Red Blood Cells into Peripheral Vein, Percutaneous Approach (ICD-10-PCS; principal; 2019-10-06)
DX: M80.851A Other osteoporosis with current pathological fracture, right femur, initial encounter for fracture (principal); E43 Unspecified severe protein-calorie malnutrition; N17.0 Acute kidney failure with tubular necrosis; N12 Tubulo-interstitial nephritis, not specified as acute or chronic; D62 Acute posthemorrhagic anemia; N18.4 Chronic kidney disease, stage 4 (severe); K56.7 Ileus, unspecified; E87.1 Hypo-osmolality and hyponatremia; Z68.41 Body mass index [BMI] 40.0-44.9, adult; B96.5 Pseudomonas (aeruginosa) (mallei) (pseudomallei) as the cause of diseases classified elsewhere; E66.01 Morbid (severe) obesity due to excess calories; E11.22 Type 2 diabetes mellitus with diabetic chronic kidney disease; I12.9 Hypertensive chronic kidney disease with stage 1 through stage 4 chronic kidney disease, or unspecified chronic kidney disease; B96.89 Other specified bacterial agents as the cause of diseases classified elsewhere; E11.65 Type 2 diabetes mellitus with hyperglycemia; K56.41 Fecal impaction; R33.9 Retention of urine, unspecified; M17.11 Unilateral primary osteoarthritis, right knee; Z88.6 Allergy status to analgesic agent; Z82.49 Family history of ischemic heart disease and other diseases of the circulatory system; Z79.899 Other long term (current) drug therapy

== ENCOUNTER 2019-10-26 04:33 | Emergency (ER) | payer MEDICARE ==
[~2019-10-26] VITALS: Ht 160 cm; Wt 109.8 kg
[~2019-10-26 04:33] MED LIST changes: +ACIDOPHILUS1 EAC4 PO; +CALCIUM 600 +1 EAC1 PO; +CIPRO500 MG PO; +ELIQUIS5 MG PO; +FLEXERIL PO; +FOSAMAX 70 MG T70 MG PO; +IRON325 PO; +LIDOPATCH1 EACH TOP; +MAXIPIME1 GM IM; +MELATONIN5 M1 PO; +NYAMYC15 GM TOP; +SENNA-TIME S T1 EACH PO; +SYNTHROID150 MCG PO; +VITAMIN D250 MCG PO
[2019-10-26] MEDS ORDERED: TRAMADOL 50 MG50 MG PO (04:56)
[2019-10-26 05:23] LABS: HEMATOCRIT 28.8 % (37.0-47.0); HEMOGLOBIN 9.7 gm/dL (12.0-15.0); MCH 28.4 pg (26.0-34.0); MCHC 33.7 g/dL (28.0-37.0); MCV 84.3 fL (80.0-100.0); MPV 6.8 fl. (7.2-11.1); NUCLEATED RBCS 0 /100WBC; PLATELET COUNT* 264 thou/uL (150-400); RBC 3.42 mil/uL (4.20-5.00); RDW-CV 15.7 % (10.5-14.5); WBC 11.4 thou/uL (4.0-11.0)
[2019-10-26 05:32] LABS: CALCIUM 7.5 mg/dL (8.5-10.1); CREATININE 1.7 mg/dL (0.6-1.3); POTASSIUM 3.3 mmol/L (3.5-5.1)
[2019-10-26 05:33] LABS: APTT 32.9 Seconds (25.0-31.3); INR 1.1; PROTIME 11.4 Seconds (9.20-11.50)
[2019-10-26 05:33] LABS: URINE BILIRUBIN NEGATIVE (Negative); URINE BLOOD 2+ (Negative); URINE CLARITY CLEAR; URINE COLOR YELLOW; URINE GLUCOSE-RANDOM NEGATIVE (Negative); URINE KETONES NEGATIVE (Negative); URINE LEUKOCYTES-REFLEX TRACE (Negative); URINE NITRITE-REFLEX NEGATIVE (Negative); URINE PROTEIN 2+ (Negative); URINE SPECIFIC GRAVITY 1.015 (1.005-1.030); URINE UROBILINOGEN 0.2 E.U./dl (0.2-1.0)
[2019-10-26 05:48] LABS: ALBUMIN 2.6 g/dL (3.4-5.0); CK-MB MASS 2.1 ng/mL (<0.5-3.6); TOTAL BILIRUBIN 0.9 mg/dL (<0.1-1.0)
[2019-10-26 05:56] LABS: CASTS None Seen /LPF (None Seen); SQUAMOUS 4-10 Moderate /LPF (0-3)
[2019-10-26 05:57] LABS: URINE RBC 3-10 Few /HPF (0-2); URINE WBC-REFLEX 6-15 Few /HPF (0-5)
[2019-10-26 05:58] LABS: BACTERIA-REFLEX 1-9 Few /HPF (None Seen); CRYSTALS None Seen /LPF (None Seen)
[2019-10-26 06:22] LABS: ABSOLUTE MONOCYTES 0.3 thou/uL (0.0-1.2)
[2019-10-26 06:23] LABS: PLATELET ESTIMATE ADEQUATE
[2019-10-26 06:43] VITALS: BP 171/83
--- NOTE | 2019-10-27 14:08 | EKG ---
[place] [address] ELECTROCARDIOGRAM REPORT Name: ABHINAV ABRAHAM Room: [facility]#: [id number] Admission: 10/26/19 Attend Phys: Discharge: 10/26/19 Date of : 52 Date of Service: 10/26/19 1349 Report #: [id number] THIS REPORT FOR: //name// 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 : 1950 Requested By: Shashi Bingham Order Number: [id number] MD: Irving Krause Measurements Intervals [place] Rate: 72 P: CT: QRS: -17 QRSD: 93 T: 124 QT: 462 QTc: 506 Interpretive Statements sinus rhythm with pac's and pvc poor r wave progression Borderline left axis deviation Nonspecific repol abnormality, lateral leads Prolonged QT interval Compared to ECG 10/03/2019 08:01:26 Ventricular premature complex(es) now present Electronically Signed On 10-27-2019 14:07:00 CDT by Irving Krause [email or web address] <ELECTRONICALLY SIGNED> By: Irving Krause MD, FAC 10/27/19 1407 1349 1349 Irving Krause MD, FAC /EPI
== END 2019-10-26 06:43 | disposition home or self-care (01) ==
LOC: M.ERS 04:33
PROVIDERS: Family Medicine
DX: E11.649 Type 2 diabetes mellitus with hypoglycemia without coma (principal); R41.82 Altered mental status, unspecified; I12.9 Hypertensive chronic kidney disease with stage 1 through stage 4 chronic kidney disease, or unspecified chronic kidney disease; E11.22 Type 2 diabetes mellitus with diabetic chronic kidney disease; E78.5 Hyperlipidemia, unspecified; E66.01 Morbid (severe) obesity due to excess calories; K58.9 Irritable bowel syndrome, unspecified; N18.4 Chronic kidney disease, stage 4 (severe); Z68.41 Body mass index [BMI] 40.0-44.9, adult; Z88.6 Allergy status to analgesic agent

== ENCOUNTER 2019-10-26 13:32 | Inpatient (IN) | payer MEDICARE ==
[~2019-10-26] VITALS: Ht 160 cm; Wt 110.6 kg
--- NOTE | ~2019-10-26 | CON ---
[address] [address] CONSULTATION Name: CHE ABRAHAMCathi Govea Room: [address] IN .R.#: [id number] Admission: 10/26/19 Attend Phys: Ofelia Anders Discharge: Date of : 52 Report #: [id number] THIS REPORT FOR: //name// cc: GERI Dewitt family physician/PCP GERI Dewitt family physician/PCP ~ THIS REPORT FOR: //name// CC: GERI physician/PCP Boris Sharma DATE OF SERVICE: 10/29/2019 NEPHROLOGY CONSULTATION CONSULTING PHYSICIAN: Boris Sharma DO REASON FOR NEPHROLOGY CONSULTATION: Hyponatremia. REASON FOR ADMISSION: Hypoglycemia. HISTORY OF PRESENT ILLNESS: This is a 69-year-old female with past medical history of diabetes, hypertension, was brought in through EMS because her blood sugar was found to be 21. It was treated with D10 water for 3 days. Her sodium was 129 when she first came in and it dropped to 119 this morning and hence Nephrology was consulted and she was started on normal saline. She does have chronic kidney disease, stage 3. Her baseline creatinine runs anywhere between 1.6 to 1.9 and creatinine is at baseline 1.6. She also has a Beatty catheter. I am not sure if she was retaining urine when she first came in. She did have a CT scan 2 days ago, which also showed a right proximal ureter 10 mm stone causing mild obstructive uropathy. She states she does not follow up with Nephrology as outpatient and she denies having problems or kidney stones before. She does not take any NSAIDs. She does have evidence of possible bronchitis and fecal impaction on the abdominal CT scan as well. An FOBT was positive and C. diff was not detected though. ALLERGIES: CODEINE. REVIEW OF SYSTEMS: As mentioned in history of present illness, otherwise, the patient feels pretty good. A 10-point review of systems done, negative. PAST MEDICAL AND SURGICAL HISTORY: Includes history of diabetes, hypertension, IBS, chronic kidney disease stage 3, history of kidney infections in the past, status post left nephrostomy in the past, hyperlipidemia, morbid obesity, and osteoporosis. FAMILY HISTORY: [place] [id number] CONSULTATION Name: ABHINAV ABRAHAM Room: [address] IN [facility]#: [id number] Admission: 10/26/19 Attend Phys: Ofelia Anders Discharge: Date of : 52 Report #: [id number] HOME MEDICATIONS: Include atenolol, levothyroxine, nystatin and a lidocaine patch, melatonin, alendronate, ciprofloxacin, ferrous sulfate, calcium carbonate and Senna, docusate, lactobacillus, cyclobenzaprine. SOCIAL HISTORY: She does not smoke or drink alcohol or use illicit drugs. PHYSICAL EXAMINATION: VITAL SIGNS: Blood pressure is 151/72, temperature 36.6, pulse rate is 57, respiratory rate is 16 and pulse ox on room air 99%. GENERAL: She is awake and alert and oriented x 3, sitting up in chair. HEAD AND EYES: Atraumatic, normocephalic. Normal conjunctivae. EARS, NOSE, AND THROAT: Normal ears and nose. Mucous membranes are moist. NECK: No JVD. CHEST: Bilaterally clear to auscultation posteriorly. No crackles or wheezing. CARDIOVASCULAR: S1, S2 normal. No murmurs. ABDOMEN: Soft, nondistended, nontender. Bowel sounds are present. GENITOURINARY: No CVA tenderness. EXTREMITIES: Bilateral lower extremities, no edema. PSYCHIATRIC: Mood seems to be normal. NEUROLOGICAL FUNCTION: Gross neurological function is intact. LABORATORY DATA: WBC is 8.3, hemoglobin 8.4, platelet count is 276. Sodium is 119, potassium is 4.6, creatinine is 1.6, chloride was 87 and other labs were reviewed. IMAGING: Abdominopelvic CT scan and chest x-ray were reviewed. ASSESSMENT: 1. Hyponatremia in the setting of D10. Urine sodium was 124 on admission actually, went up to 129 and now dropped to 119. Her baseline sodium is more around 130. 2. Chronic kidney disease stage 3, baseline creatinine around 1.6-2, likely because of diabetes and hypertension and creatinine is at baseline 1.6. 3. History of diabetes type 2, primary team is managing. 4. History of hypertension. Blood pressure seems to be controlled. 5. CT abdomen and pelvis shows a right-sided obstructive uropathy, 10 mm stone in proximal right ureter causing mild right hydronephrosis with left renal atrophy. The patient does not have symptoms right now. 6. The patient presented with hypoglycemia with history of diabetes. This has resolved now. 7. Possible proctitis and fecal impaction in rectum. FOBT positive. C. diff negative. Primary team is treating this. 8. Anemia. PLAN: [facility] [address] [place] [address] CONSULTATION Name: ABHINAV ABRAHAM Room: [address] IN M.R.#: [id number] Admission: 10/26/19 Attend Phys: Ofelia Anders Discharge: Date of : 52 Report #: [id number] 1. Agree with giving normal saline. She is currently getting normal saline at 100 mL an hour, ordered urine osmolality, urine sodium, serum TSH, serum cortisol and serum sodium needs to be checked every 5 hours. 2. Sodium should not get corrected by greater than 6-8 mEq in hour timespan. I have asked nursing to let me know if sodium levels are dropping by any point or if they are going up by greater than 3 points with any check. 3. I spoke with Dr. Sharma about this. His CT scan finding of a ureteral stone on the right side causing obstruction and he was going to talk to the patient and probably the patient will need transfer to a facility where urological service is available to deal with this. 4. Also, treat the constipation. 5. I will put her on fluid restriction 1 liter a day. Thank you for this consultation. Her kidney function is currently at baseline. We will continue to follow with you. Discussed with the patient, Dr. Sharma as well as the patient's nurse. By: [id number] Garcia MD /nt
[~2019-10-26 13:32] MED LIST changes: +TRAMADOL 50 MG50 MG PO
[2019-10-26 13:34] VITALS: BP 153/83
[2019-10-26 14:19] LABS: HEMATOCRIT 28.4 % (37.0-47.0); HEMOGLOBIN 9.5 gm/dL (12.0-15.0); MCH 28.7 pg (26.0-34.0); MCHC 33.6 g/dL (28.0-37.0); MCV 85.4 fL (80.0-100.0); MPV 7.4 fl. (7.2-11.1); NUCLEATED RBCS 0 /100WBC; PLATELET COUNT* 263 thou/uL (150-400); RBC 3.33 mil/uL (4.20-5.00); RDW-CV 15.4 % (10.5-14.5); WBC 13.5 thou/uL (4.0-11.0)
[2019-10-26 14:27] LABS: CALCIUM 7.3 mg/dL (8.5-10.1); CREATININE 1.9 mg/dL (0.6-1.3); POTASSIUM 3.1 mmol/L (3.5-5.1)
[2019-10-26 14:38] LABS: ALBUMIN 2.4 g/dL (3.4-5.0); TOTAL BILIRUBIN 0.7 mg/dL (<0.1-1.0); TOTAL PROTEIN 6.5 g/dL (6.4-8.2)
[2019-10-26 15:03] LABS: ABSOLUTE EOSINOPHILS 0.1 thou/uL (0.0-0.7); ABSOLUTE LYMPHOCYTES 0.5 thou/uL (0.8-5.3); ABSOLUTE MONOCYTES 0.7 thou/uL (0.0-1.2); ABSOLUTE NEUTROPHILS 12.2 thou/uL (1.6-8.1)
[2019-10-26 15:04] LABS: PLATELET ESTIMATE ADEQUATE
[2019-10-26 15:05] LABS: ANISOCYTOSIS Occasional
[2019-10-26 15:09] LABS: URINE BILIRUBIN NEGATIVE (Negative); URINE BLOOD 1+ (Negative); URINE CLARITY CLEAR; URINE COLOR YELLOW; URINE GLUCOSE-RANDOM NEGATIVE (Negative); URINE KETONES NEGATIVE (Negative); URINE LEUKOCYTES-REFLEX 1+ (Negative); URINE NITRITE-REFLEX NEGATIVE (Negative); URINE PROTEIN 1+ (Negative); URINE SPECIFIC GRAVITY <= 1.005 (1.005-1.030); URINE UROBILINOGEN 0.2 E.U./dl (0.2-1.0)
[2019-10-26 15:15] LABS: SQUAMOUS 0-3 Few /LPF (0-3)
[2019-10-26 15:16] LABS: URINE WBC-REFLEX 0-5 Rare /HPF (0-5)
[2019-10-26 15:19] LABS: BACTERIA-REFLEX 1-9 Few /HPF (None Seen); CASTS None Seen /LPF (None Seen); MUCUS None Seen strn/LPF (None Seen); URINE RBC 0-2 Rare /HPF (0-2)
[2019-10-26 15:20] VITALS: BP 169/70
[2019-10-26 15:20] LABS: CRYSTALS None Seen /LPF (None Seen)
[2019-10-26 16:32] VITALS: BP 162/72
[2019-10-26 20:00] VITALS: BP 161/78
[2019-10-26 22:04] LABS: CALCIUM 7.3 mg/dL (8.5-10.1); CREATININE 1.7 mg/dL (0.6-1.3); MAGNESIUM 1.3 mg/dL (1.8-2.4); POTASSIUM 3.5 mmol/L (3.5-5.1)
[2019-10-27] VITALS (10 sets, daily range): BP systolic 119–180; BP diastolic 64–86
[2019-10-27 11:30] LABS: ABSOLUTE BASOPHILS 0.1 thou/uL (0.0-0.2); ABSOLUTE EOSINOPHILS 0.1 thou/uL (0.0-0.7); ABSOLUTE LYMPHOCYTES 1.1 thou/uL (0.8-5.3); ABSOLUTE MONOCYTES 0.4 thou/uL (0.0-1.2); ABSOLUTE NEUTROPHILS 10.7 thou/uL (1.6-8.1); BASOPHILS 0.6 %; EOSINOPHILS 1.2 %; HEMATOCRIT 26.5 % (37.0-47.0); HEMOGLOBIN 8.8 gm/dL (12.0-15.0); MCH 28.5 pg (26.0-34.0); MCHC 33.3 g/dL (28.0-37.0); MCV 85.5 fL (80.0-100.0); MONOCYTES 3.3 %; MPV 7.9 fl. (7.2-11.1); NUCLEATED RBCS 0 /100WBC; PLATELET COUNT* 248 thou/uL (150-400); POLYS 85.9 %; RDW-CV 15.4 % (10.5-14.5); WBC 12.5 thou/uL (4.0-11.0)
[2019-10-27 11:46] LABS: CALCIUM 7.2 mg/dL (8.5-10.1); CREATININE 1.6 mg/dL (0.6-1.3); POTASSIUM 3.4 mmol/L (3.5-5.1)
[2019-10-28] VITALS (14 sets, daily range): BP systolic 99–173; BP diastolic 52–83
[2019-10-28 03:54] LABS: ABSOLUTE EOSINOPHILS 0.4 thou/uL (0.0-0.7); ABSOLUTE LYMPHOCYTES 1.9 thou/uL (0.8-5.3); ABSOLUTE MONOCYTES 0.6 thou/uL (0.0-1.2); ABSOLUTE NEUTROPHILS 9.5 thou/uL (1.6-8.1); BASOPHILS 0.3 %; EOSINOPHILS 3.4 %; HEMOGLOBIN 9.2 gm/dL (12.0-15.0); LYMPHOCYTES 15.2 %; MCV 84.9 fL (80.0-100.0); MONOCYTES 5.2 %; MPV 7.2 fl. (7.2-11.1); NUCLEATED RBCS 0 /100WBC; PLATELET COUNT* 304 thou/uL (150-400); POLYS 75.9 %; RBC 3.29 mil/uL (4.20-5.00); RDW-CV 15.4 % (10.5-14.5); WBC 12.6 thou/uL (4.0-11.0)
[2019-10-28 04:18] LABS: CALCIUM 7.6 mg/dL (8.5-10.1); CREATININE 1.7 mg/dL (0.6-1.3); MAGNESIUM 1.8 mg/dL (1.8-2.4); POTASSIUM 4.2 mmol/L (3.5-5.1)
--- NOTE | 2019-10-28 16:11 | EKG ---
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: : 1950 Requested By: Brian Laird Order Number: [id number] MD: Mark Card Measurements Intervals [place] Rate: 62 P: 13 [place]: 207 QRS: -20 QRSD: 105 T: 70 QT: 441 QTc: 448 Interpretive Statements Sinus rhythm Multiple premature complexes, vent & supraven Consider anterior infarct Borderline repolarization abnormality Compared to ECG 10/03/2019 08:01:26 Myocardial infarct finding now possible T-wave abnormality no longer present Electronically Signed On 10-28-2019 16:09:45 CDT by Mark Card [email or web address] <ELECTRONICALLY SIGNED> By: Mark Card MD, [facility] 10/28/19 1609 0438 0438 Mark Card MD, [facility] /EPI
[2019-10-29] VITALS: BP 144/94
[2019-10-29 04:00] VITALS: BP 139/59
[2019-10-29 05:23] LABS: ABSOLUTE BASOPHILS 0.1 thou/uL (0.0-0.2); ABSOLUTE EOSINOPHILS 0.4 thou/uL (0.0-0.7); ABSOLUTE MONOCYTES 0.6 thou/uL (0.0-1.2); ABSOLUTE NEUTROPHILS 5.3 thou/uL (1.6-8.1); BASOPHILS 0.6 %; EOSINOPHILS 4.4 %; HEMOGLOBIN 8.4 gm/dL (12.0-15.0); LYMPHOCYTES 24.1 %; MCHC 34.8 g/dL (28.0-37.0); MCV 83.4 fL (80.0-100.0); MONOCYTES 7.1 %; MPV 6.8 fl. (7.2-11.1); NUCLEATED RBCS 0 /100WBC; PLATELET COUNT* 276 thou/uL (150-400); POLYS 63.8 %; RBC 2.88 mil/uL (4.20-5.00); RDW-CV 15.1 % (10.5-14.5); WBC 8.3 thou/uL (4.0-11.0)
[2019-10-29 05:38] LABS: CALCIUM 7.9 mg/dL (8.5-10.1); CREATININE 1.6 mg/dL (0.6-1.3); POTASSIUM 4.6 mmol/L (3.5-5.1)
[2019-10-29 08:00] VITALS: BP 151/72
[2019-10-29 11:18] LABS: CALCIUM 8.3 mg/dL (8.5-10.1); CREATININE 1.7 mg/dL (0.6-1.3); POTASSIUM 4.6 mmol/L (3.5-5.1)
[2019-10-29 11:21] LABS: URIC ACID* 6.4 mg/dL (2.6-7.2)
[2019-10-29 11:52] VITALS: BP 179/74
[2019-10-29 15:59] LABS: ABSOLUTE BASOPHILS 0.1 thou/uL (0.0-0.2); ABSOLUTE EOSINOPHILS 0.3 thou/uL (0.0-0.7); ABSOLUTE LYMPHOCYTES 1.4 thou/uL (0.8-5.3); ABSOLUTE MONOCYTES 0.5 thou/uL (0.0-1.2); ABSOLUTE NEUTROPHILS 6.5 thou/uL (1.6-8.1); BASOPHILS 0.9 %; EOSINOPHILS 3.4 %; HEMATOCRIT 26.6 % (37.0-47.0); HEMOGLOBIN 9.1 gm/dL (12.0-15.0); LYMPHOCYTES 16.3 %; MCH 28.5 pg (26.0-34.0); MCHC 34.3 g/dL (28.0-37.0); MCV 83.3 fL (80.0-100.0); MONOCYTES 5.9 %; MPV 6.8 fl. (7.2-11.1); NUCLEATED RBCS 0 /100WBC; PLATELET COUNT* 326 thou/uL (150-400); POLYS 73.5 %; RDW-CV 15.1 % (10.5-14.5); WBC 8.9 thou/uL (4.0-11.0)
[2019-10-29 16:19] VITALS: BP 157/71
[2019-10-29 17:03] LABS: ESR (SEDRATE) 75 mm/hr (0-30)
[2019-10-29 20:40] VITALS: BP 150/69
[2019-10-30] VITALS: BP 139/53
[2019-10-30 04:00] VITALS: BP 179/75
[2019-10-30 08:00] VITALS: BP 146/69
[2019-10-30 08:20] LABS: HEMATOCRIT 23.2 % (37.0-47.0); HEMOGLOBIN 7.8 gm/dL (12.0-15.0); MCH 28.1 pg (26.0-34.0); MCHC 33.8 g/dL (28.0-37.0); MCV 83.2 fL (80.0-100.0); MPV 6.5 fl. (7.2-11.1); RBC 2.79 mil/uL (4.20-5.00); RDW-CV 15.4 % (10.5-14.5); WBC 6.6 thou/uL (4.0-11.0)
[2019-10-30 08:30] LABS: CALCIUM 8.3 mg/dL (8.5-10.1); CREATININE 1.8 mg/dL (0.6-1.3); POTASSIUM 4.1 mmol/L (3.5-5.1)
[2019-10-30 12:42] VITALS: BP 187/79
[2019-10-30 17:28] VITALS: BP 163/64
[2019-10-31] VITALS: BP 164/62
[2019-10-31 08:00] VITALS: BP 185/61
[2019-10-31 14:54] VITALS: BP 185/61
== END 2019-10-31 15:28 | disposition short-term general hospital (02) | DRG 871 ==
LOC: M.ERS 13:32 → M.TBA-ER 14:49 → M.2W 14:49 → M.ICU 10-27 19:18 → M.2W 10-28 12:23
PROVIDERS: Emergency Medicine Emergency Medical Services; Internal Medicine; Orthopaedic Surgery; ADMIT Internal Medicine
DX: A41.9 Sepsis, unspecified organism (principal); G93.41 Metabolic encephalopathy; N39.0 Urinary tract infection, site not specified; N18.4 Chronic kidney disease, stage 4 (severe); E87.1 Hypo-osmolality and hyponatremia; N17.9 Acute kidney failure, unspecified; Z68.41 Body mass index [BMI] 40.0-44.9, adult; E11.649 Type 2 diabetes mellitus with hypoglycemia without coma; E11.22 Type 2 diabetes mellitus with diabetic chronic kidney disease; E78.5 Hyperlipidemia, unspecified; I12.9 Hypertensive chronic kidney disease with stage 1 through stage 4 chronic kidney disease, or unspecified chronic kidney disease; M81.0 Age-related osteoporosis without current pathological fracture; E66.01 Morbid (severe) obesity due to excess calories; D64.9 Anemia, unspecified; N13.9 Obstructive and reflux uropathy, unspecified; E03.9 Hypothyroidism, unspecified; K58.9 Irritable bowel syndrome, unspecified; Z93.6 Other artificial openings of urinary tract status; Z88.6 Allergy status to analgesic agent; Z79.899 Other long term (current) drug therapy